=== PATIENT | female | born 1975 | race Hispanic/Latino ===

== ENCOUNTER 2016-08-06 20:10 | Emergency (ER) | payer MEDICAID ==
[2016-08-06 20:10] VITALS: BMI 26.7
[2016-08-06 20:26] VITALS: BP 130/70; PULSE 92; RESP 16; TEMP 98; O2SAT 98
--- NOTE | 2016-08-06 21:04 | ED PDOC ---
Lower Extremity Pain/Injury Time Seen by Provider: 08/06/16 20:44 Chief Complaint (Nursing): Lower Extremity Problem/Injury Chief Complaint (Provider): Right Knee Pain History Per: Patient History/Exam Limitations: no limitations Onset/Duration Of Symptoms: Days (x1) Current Symptoms Are (Timing): Still Present Severity: Mild Additional Complaint(s): Patient is a 40 year old female presenting to the ED complaining of right knee pain status post fall yesterday. Patient reports she slipped and fell yesterday. States her left left when in front of her and her right left twisted outward. She had XRs done earlier today and was told there were no fractures or dislocations. Patient has a history of torn ligaments so she presents to the ED for an MRI. PMD: Kendell Russ - Knee Description Of Injury: Fell Past Medical History Reviewed: Historical Data, Nursing Documentation, Vital Signs Vital Signs: Last Vital Signs Temp 98.0 F 08/06/16 20:24 Pulse 92 H 08/06/16 20:24 Resp 16 08/06/16 20:24 BP 130/70 08/06/16 20:24 Pulse Ox 98 08/06/16 20:24 - Medical History PMH: Anxiety, Back Problems (herniated disc, sciatica), Gastritis, GERD, Hiatal Hernia, Post Traumatic Stress Disorder, Seizures (reportedly a heart murmur) Denies: Diabetes, Hepatitis, HIV, HTN, Chronic Kidney Disease, Sexually Transmitted Disease - Surgical History Surgical History: Cholecystectomy - Family History Family History: States: Unknown Family Hx - Home Medications Home Medications: Ambulatory Orders Medication Instructions Recorded Ondansetron ODT [Zofran ODT] 4 mg PO BID #6 odt 08/10/15 Lansoprazole [Prevacid] 30 mg PO DAILY 05/20/16 Ondansetron ODT [Zofran ODT] 4 mg PO TID PRN #20 odt 05/20/16 - Allergies Allergies/Adverse Reactions: Allergies Allergy/AdvReac Type Severity Reaction Status Date / Time ciprofloxacin [From Cipro] Allergy RASH Verified 12/06/15 15:36 ciprofloxacin HCl Allergy RASH Verified 12/06/15 15:36 [From Cipro] Penicillins Allergy RASH Verified 12/06/15 15:36 Review of Systems ROS Statement: Except As Marked, All Systems Reviewed And Found Negative Constitutional: Negative for: Fever Musculoskeletal: Positive for: Other (rt knee pain) Physical Exam - Reviewed Nursing Documentation Reviewed: Yes Vital Signs Reviewed: Yes - Physical Exam Appears: Positive for: Well, Non-toxic, No Acute Distress Head Exam: Positive for: ATRAUMATIC, NORMAL INSPECTION, NORMOCEPHALIC Skin: Positive for: Normal Color (No ecchymosis, no abrasions ), Warm Eye Exam: Positive for: Normal appearance ENT: Positive for: Normal ENT Inspection Neck: Positive for: Normal, Painless ROM Cardiovascular/Chest: Positive for: Regular Rate, Rhythm Respiratory: Positive for: CNT, Normal Breath Sounds Gastrointestinal/Abdominal: Positive for: Normal Exam, Bowel Sounds, Soft Back: Positive for: Normal Inspection Extremity: Positive for: Normal ROM Neurologic/Psych: Positive for: Alert, Oriented - ECG O2 Sat by Pulse Oximetry: 98 (RA) Pulse Ox Interpretation: Normal Medical Decision Making Medical Decision Making: Time: 20:45 Impression: Rt knee pain Plan: Patient told that the ER does not provide MRIs. Scribe Attestation: Documented by Brandin King acting as a scribe for Monica Poon. Provider Attestation: All medical record entries made by the Scribe were at my direction and personally dictated by me. I have reviewed the chart and agree that the record accurately reflects my personal performance of the history, physical exam, medical decision making, and the department course for this patient. I have also personally directed, reviewed, and agree with the discharge instructions and disposition. Disposition - Clinical Impression Clinical Impression: Right knee pain - Disposition Disposition: Routine/Home Disposition Time: 21:45 Condition: STABLE Instructions: Knee Pain (ED)
== END 2016-08-06 22:13 | disposition home or self-care (01) ==
LOC: H.ER 20:10
DX: M25.561 Pain in right knee (principal); W19.XXXA Unspecified fall, initial encounter; Y92.89 Other specified places as the place of occurrence of the external cause

== ENCOUNTER 2016-10-01 17:50 | Emergency (ER) | payer MEDICAID ==
[2016-10-01 17:50] VITALS: BMI 26.7
[2016-10-01 18:09] VITALS: BP 108/68; PULSE 97; RESP 20; TEMP 98.7; O2SAT 100
--- NOTE | 2016-10-01 18:37 | ED PDOC ---
Lower Extremity Pain/Injury Time Seen by Provider: 10/01/16 18:10 Chief Complaint (Nursing): Lower Extremity Problem/Injury Chief Complaint (Provider): Lower Extremity Problem/Injury History Per: Patient History/Exam Limitations: no limitations Onset/Duration Of Symptoms: Hrs (a few hours prior to arrival) Additional Complaint(s): Pita Pryor, 40 year old female presents to the ED on 10/01/16 with a lower extremity injury. Patient states that she was walking and suddenly felt her right knee twist a few hours prior to arrival. She reports on August 05, she injured the same knee and was diagnosed with Meniscus Tear via MRI. Patient further states that she has yet to see an orthopedist. She denies any numbness or tingling. Past Medical History Reviewed: Historical Data, Nursing Documentation, Vital Signs Vital Signs: Last Vital Signs Temp 98.7 F 10/01/16 17:57 Pulse 97 H 10/01/16 17:57 Resp 20 10/01/16 17:57 BP 108/68 10/01/16 17:57 Pulse Ox 100 10/01/16 17:57 - Medical History PMH: Anxiety, Back Problems (herniated disc, sciatica), Gastritis, GERD, Hiatal Hernia, Post Traumatic Stress Disorder, Seizures (reportedly a heart murmur) Denies: Diabetes, Hepatitis, HIV, HTN, Chronic Kidney Disease, Sexually Transmitted Disease - Surgical History Surgical History: Cholecystectomy - Family History Family History: States: Unknown Family Hx - Home Medications Home Medications: Ambulatory Orders Medication Instructions Recorded Ondansetron ODT [Zofran ODT] 4 mg PO BID #6 odt 08/10/15 Lansoprazole [Prevacid] 30 mg PO DAILY 05/20/16 Ondansetron ODT [Zofran ODT] 4 mg PO TID PRN #20 odt 05/20/16 Naproxen [Naprosyn] 500 mg PO BID PRN #30 tab 10/01/16 Tramadol HCl [Ultram] 1 - 2 tab PO BID PRN #10 tablet 10/01/16 - Allergies Allergies/Adverse Reactions: Allergies Allergy/AdvReac Type Severity Reaction Status Date / Time ciprofloxacin [From Cipro] Allergy RASH Verified 12/06/15 15:36 ciprofloxacin HCl Allergy RASH Verified 12/06/15 15:36 [From Cipro] Penicillins Allergy RASH Verified 12/06/15 15:36 Review of Systems Musculoskeletal: Positive for: Leg Pain (right knee) Neurological: Negative for: Numbness (and no tingling) Physical Exam - Reviewed Nursing Documentation Reviewed: Yes Vital Signs Reviewed: Yes - Physical Exam Appears: Positive for: Non-toxic, No Acute Distress Head Exam: Positive for: ATRAUMATIC, NORMOCEPHALIC Skin: Positive for: Normal Color, Warm, Dry Extremity: Positive for: Tenderness (mild tenderness to right knee), Swelling ( minimal swelling to right knee), Other (dorsalis pedis pulses 2+). Negative for : Calf Tenderness (bilaterally ), Deformity (to right knee) Neurologic/Psych: Positive for: Alert, Oriented (x3) - ECG O2 Sat by Pulse Oximetry: 100 (RA) Pulse Ox Interpretation: Normal - Progress ED Course And Treament: Knee immobilized in immobilizer applied by plastics technician. Crutches provided. Medical Decision Making Medical Decision Makin:10 Initial Impression: Lower Extremity Injury/Problem Initial Plan: * Knee 3 Views RT [RAD] Stat * Reevaluation Scribe Attestation: Documented by Laura Davis, acting as a scribe for Jacob Gonsales PA-C. Provider Scribe Attestation: All medical record entries made by the Scribe were at my direction and personally dictated by me. I have reviewed the chart and agree that the record accurately reflects my personal performance of the history, physical exam, medical decision making, and the department course for this patient. I have also personally directed, reviewed, and agree with the discharge instructions and disposition. Disposition - Clinical Impression Clinical Impression: Knee injury - Patient ED Disposition Is Patient to be Admitted: No - Disposition Referrals: [facility] [Outside] Disposition: Routine/Home Disposition Time: 19:07 Condition: STABLE Prescriptions: Naproxen [Naprosyn] 500 mg PO BID PRN #30 tab PRN Reason: Pain Tramadol HCl [Ultram] 1 - 2 tab PO BID PRN #10 tablet PRN Reason: Other Instructions: Knee Sprain (ED), Knee Immobilizer (ED), Crutch Instructions (ED) Print Language: KINYARWANDA
--- NOTE | 2016-10-02 14:36 | RAD ---
PROCEDURE: Right Knee Radiographs. HISTORY: trauma COMPARISON: None. FINDINGS: BONES: Normal. No fracture. JOINTS: Normal. No osteoarthritis. JOINT EFFUSION: None. OTHER FINDINGS: None. IMPRESSION: No evidence of acute fracture or dislocation
== END 2016-10-01 20:17 | disposition home or self-care (01) ==
LOC: H.ER 17:50
DX: S89.91XA Unspecified injury of right lower leg, initial encounter (principal); X50.9XXA Other and unspecified overexertion or strenuous movements or postures, initial encounter; Y92.410 Unspecified street and highway as the place of occurrence of the external cause; F41.9 Anxiety disorder, unspecified; F43.10 Post-traumatic stress disorder, unspecified; K21.9 Gastro-esophageal reflux disease without esophagitis; Z88.0 Allergy status to penicillin

== ENCOUNTER 2016-10-10 14:09 | Emergency (ER) | payer MEDICAID ==
[2016-10-10 14:09] VITALS: BMI 26.7
[2016-10-10 15:04] VITALS: BP 97/60; PULSE 73; RESP 16; TEMP 98; O2SAT 98
[2016-10-10] MEDS ORDERED: Oxycodone/Acetaminophen 5/325 mg Tab ONE (15:11)
[2016-10-10] MEDS ORDERED: Oxycodone/Acetaminophen 5/325 mg Tab PO STA (15:14)
--- NOTE | 2016-10-10 15:54 | ED PDOC ---
Lower Extremity Pain/Injury Time Seen by Provider: 10/10/16 15:05 Chief Complaint (Nursing): Lower Extremity Problem/Injury Chief Complaint (Provider): Right Knee Pain History Per: Patient History/Exam Limitations: no limitations Onset/Duration Of Symptoms: Days (x2 months) Current Symptoms Are (Timing): Still Present Additional Complaint(s): Pita Pryor is a 40 year old female that presents to the ED with a chief complaint of right leg pain that she has been experiencing for the past two months. Patient states that two months ago, she was diagnosed with several tears in the ligaments of her right knee but has been unable to follow up with an orthopedist due to her insurance. She reports that earlier this month, she re -injured her right knee, which has resulted in the development of further pain throughout her entire right leg. She has been keeping her leg immobilized with a knee immobilizer that she was given. Patient denies any SOB, chest pain, or history of DVT or PE. Of Note: Patient has a scheduled appointment with an orthopedist, but has to pay out of pocket. She is requesting information for a different orthopedist. Past Medical History Reviewed: Historical Data, Nursing Documentation, Vital Signs Vital Signs: Last Vital Signs Temp 98.0 F 10/10/16 15:01 Pulse 73 10/10/16 15:01 Resp 16 10/10/16 15:01 BP 97/60 L 10/10/16 15:01 Pulse Ox 98 10/10/16 15:01 - Medical History PMH: Anxiety, Back Problems (herniated disc, sciatica), Gastritis, GERD, Hiatal Hernia, Post Traumatic Stress Disorder, Seizures (reportedly a heart murmur) Denies: Diabetes, Deep Vein Thrombosis, Hepatitis, HIV, HTN, Pulmonary Embolism, Chronic Kidney Disease, Sexually Transmitted Disease - Surgical History Surgical History: Cholecystectomy - Family History Family History: States: Unknown Family Hx - Home Medications Home Medications: Ambulatory Orders Medication Instructions Recorded Ondansetron ODT [Zofran ODT] 4 mg PO BID #6 odt 08/10/15 Lansoprazole [Prevacid] 30 mg PO DAILY 05/20/16 Ondansetron ODT [Zofran ODT] 4 mg PO TID PRN #20 odt 05/20/16 Naproxen [Naprosyn] 500 mg PO BID PRN #30 tab 10/01/16 Tramadol HCl [Ultram] 1 - 2 tab PO BID PRN #10 tablet 10/01/16 Acetaminophen with Codeine 1 each PO Q6 PRN #10 tablet 10/10/16 [Tylenol with Codeine #3 Tablet] - Allergies Allergies/Adverse Reactions: Allergies Allergy/AdvReac Type Severity Reaction Status Date / Time ciprofloxacin [From Cipro] Allergy RASH Verified 12/06/15 15:36 ciprofloxacin HCl Allergy RASH Verified 12/06/15 15:36 [From Cipro] Penicillins Allergy RASH Verified 12/06/15 15:36 Review of Systems Cardiovascular: Negative for: Chest Pain Respiratory: Negative for: Shortness of Breath Musculoskeletal: Positive for: Leg Pain (right leg pain) Physical Exam - Reviewed Nursing Documentation Reviewed: Yes Vital Signs Reviewed: Yes - Physical Exam Appears: Positive for: Non-toxic, No Acute Distress Head Exam: Positive for: ATRAUMATIC, NORMOCEPHALIC Skin: Positive for: Normal Color, Warm Eye Exam: Positive for: Normal appearance Pulses-Dorsalis Pedis (L): 2+ Pulses-Dorsalis Pedis (R): 2+ Extremity: Positive for: Tenderness (minimal tenderness right knee), Swelling ( minimal swelling right knee). Negative for: Calf Tenderness, Deformity, Other ( no palpable cord, negative Riley's sign) Neurologic/Psych: Positive for: Alert, Oriented - ECG O2 Sat by Pulse Oximetry: 98 (RA) Pulse Ox Interpretation: Normal - Progress ED Course And Treament: Duplex RLE: negative for DVT. Medical Decision Making Medical Decision Making: Impression: Right Leg Injury Plan: * Zofran 4 mg PO * Oxycodone 1 tab PO * US Right Lower Extremity Vein * Reevaluation Scribe Attestation: Documented by Pam Shah, acting as a scribe for Jacob Gonsales PA-C. Provider Scribe Attestation: All medical record entries made by the Scribe were at my direction and personally dictated by me. I have reviewed the chart and agree that the record accurately reflects my personal performance of the history, physical exam, medical decision making, and the department course for this patient. I have also personally directed, reviewed, and agree with the discharge instructions and disposition. Disposition - Clinical Impression Clinical Impression: Knee injury - Patient ED Disposition Is Patient to be Admitted: No - Disposition Referrals: Kendell Russ PA-C [Primary Care Provider] - Paul Nagy III, MD [Staff Provider] - [facility] [Outside] Disposition: Routine/Home Disposition Time: 16:29 Condition: STABLE Prescriptions: Acetaminophen with Codeine [Tylenol with Codeine #3 Tablet] 1 each PO Q6 PRN # 10 tablet PRN Reason: pain Instructions: Knee Immobilizer (ED), RICE Therapy (ED)
--- NOTE | 2016-10-10 16:03 | US ---
PROCEDURE: Right lower extremity venous duplex Doppler. HISTORY: pain COMPARISON: None available. TECHNIQUE: Common femoral, superficial femoral, popliteal and posterior tibial veins were evaluated. Flow was assessed with color Doppler, compressibility, assessment of phasic flow and augmentation response. FINDINGS: COMMON FEMORAL VEIN: Unremarkable. SUPERFICIAL FEMORAL VEIN: Unremarkable. POPLITEAL VEIN: Unremarkable. POSTERIOR TIBIAL VEIN: Unremarkable. OTHER FINDINGS: None. IMPRESSION: No evidence of deep venous thrombosis in the right lower extremity.
== END 2016-10-10 17:03 | disposition home or self-care (01) ==
LOC: H.ER 14:09
DX: M25.561 Pain in right knee (principal); F41.9 Anxiety disorder, unspecified; F43.10 Post-traumatic stress disorder, unspecified; K21.9 Gastro-esophageal reflux disease without esophagitis; Z88.0 Allergy status to penicillin

== ENCOUNTER 2016-10-30 02:55 | Emergency (ER) | payer MEDICAID ==
[2016-10-30 02:56] VITALS: BMI 26.7
[2016-10-30] MEDS ORDERED: Sodium Chloride 0.9% 1,000 ML IV STA ×2 (03:10→06:03)
[2016-10-30 03:56] LABS: CHLORIDE 100 mmol/L (98-107)
[2016-10-30 03:57] LABS: POTASSIUM 3.9 MMOL/L (3.6-5.0); SODIUM 135 mmol/l (132-148)
[2016-10-30 03:59] LABS: BASO # 0.1 K/uL (0.0-0.2); BASO % 0.6 % (0.0-2.0); EOS % 0.2 % (0.0-4.0); GFR AFRICAN-AMERICAN > 60; HEMATOCRIT 42.3 % (34.0-47.0); LYMPH # 1.7 K/uL (1.0-4.3); LYMPH % 9.7 % (20.0-40.0); MEAN CELL VOLUME 93.8 fl (81.0-99.0); MEAN CORPUSCULAR HEMOGLOBIN 32.1 pg (27.0-31.0); MEAN CORPUSCULAR HGB CONC 34.2 g/dL (33.0-37.0); MEAN PLATELET VOLUME 7.7 fl (7.2-11.7); MONO # 0.6 K/uL (0.0-0.8); MONO % 3.4 % (0.0-10.0); NEUT % 86.1 % (50.0-75.0); NRBC % 0.1 % (0.0-0.0); PLATELET COUNT 278 K/uL (130-400); WHITE BLOOD COUNT 17.4 K/uL (4.8-10.8)
[2016-10-30 04:00] LABS: ALB/GLOB RATIO 1.5 (1.0-2.1); ALKALINE PHOSPHATASE 103 U/L (38-126); ALT/SGPT 49 U/L (9-52); AST/SGOT 43 U/L (14-36); BILIRUBIN,TOTAL 0.6 mg/dl (0.2-1.3); BLOOD UREA NITROGEN 17 mg/dl (7-17); CALCIUM 9.6 mg/dL (8.4-10.2); CARBON DIOXIDE 22 mmol/L (22-30); GLUCOSE,RANDOM 112 mg/dL (65-105); TOTAL PROTEIN 7.4 G/DL (6.3-8.2)
--- NOTE | 2016-10-30 04:22 | ED PDOC ---
HPI: Abdomen Time Seen by Provider: 10/30/16 03:00 Chief Complaint (Nursing): Abdominal Pain Chief Complaint (Provider): Abdominal Pain History Per: Patient Outside of [place] travel?: No Current Symptoms Are (Timing): Still Present Context: Other (Alcohol) Location Of Pain/Discomfort: Epigastric Quality Of Discomfort: Burning Associated Symptoms: Nausea, Vomiting, Other (Lightheaded) Additional Complaint(s): 40 year old female presents to ED with complaints of burning epigastric pain secondary to drinking tequila all day with no food. (+) nausea, vomiting, and lightheadedness. HPI is limited due to patient's intoxicated state. PCP:[facility] Past Medical History Reviewed: Historical Data, Nursing Documentation, Vital Signs Vital Signs: Last Vital Signs Temp 98.7 F 10/30/16 03:05 Pulse 76 10/30/16 03:05 Resp 17 10/30/16 03:05 BP 139/87 10/30/16 03:05 Pulse Ox 100 10/30/16 06:58 - Medical History PMH: Anxiety, Back Problems (herniated disc, sciatica), Gastritis, GERD, Hiatal Hernia, Post Traumatic Stress Disorder, Seizures (reportedly a heart murmur) Denies: Diabetes, Deep Vein Thrombosis, Hepatitis, HIV, HTN, Pulmonary Embolism, Chronic Kidney Disease, Sexually Transmitted Disease - Surgical History Surgical History: Cholecystectomy - Family History Family History: States: Unknown Family Hx - Social History Alcohol: > 2 Drinks/Day - Home Medications Home Medications: Ambulatory Orders Medication Instructions Recorded Ondansetron ODT [Zofran ODT] 4 mg PO BID #6 odt 08/10/15 Lansoprazole [Prevacid] 30 mg PO DAILY 05/20/16 Ondansetron ODT [Zofran ODT] 4 mg PO TID PRN #20 odt 05/20/16 Naproxen [Naprosyn] 500 mg PO BID PRN #30 tab 10/01/16 Tramadol HCl [Ultram] 1 - 2 tab PO BID PRN #10 tablet 10/01/16 Acetaminophen with Codeine 1 each PO Q6 PRN #10 tablet 10/10/16 [Tylenol with Codeine #3 Tablet] - Allergies Allergies/Adverse Reactions: Allergies Allergy/AdvReac Type Severity Reaction Status Date / Time ciprofloxacin [From Cipro] Allergy RASH Verified 12/06/15 15:36 ciprofloxacin HCl Allergy RASH Verified 12/06/15 15:36 [From Cipro] Penicillins Allergy RASH Verified 12/06/15 15:36 Review of Systems ROS Statement: Except As Marked, All Systems Reviewed And Found Negative Gastrointestinal: Positive for: Nausea, Vomiting, Abdominal Pain (burning epigastric pain) Neurological: Positive for: Dizziness (Lightheadedness) Physical Exam - Reviewed Nursing Documentation Reviewed: Yes Vital Signs Reviewed: Yes - Physical Exam Appears: Positive for: Uncomfortable (Patient is actively retching) Skin: Positive for: Normal Color Cardiovascular/Chest: Positive for: Regular Rate, Rhythm Respiratory: Negative for: Respiratory Distress Gastrointestinal/Abdominal: Positive for: Soft, Tenderness (epigastric tenderness) Extremity: Negative for: Deformity Neurologic/Psych: Negative for: Oriented, Motor/Sensory Deficits - Laboratory Results Result Diagrams: 10/30/16 03:30 10/30/16 03:30 - ECG O2 Sat by Pulse Oximetry: 100 (RA) Pulse Ox Interpretation: Normal Medical Decision Making Medical Decision Makin Initial impression: alcohol-induced gastritis Initial plan: * Labs * NS IV * Protonix Inj 40mg IVP * Zofran Inj 4mg IVP * Re-eval [id number] Upon re-evaluation, patient's abdominal pain has significantly improved; however the patient is still actively vomiting. Scribe Attestation: Documented by Letty Gonsalves acting as a scribe for Haroon Sandoval MD. Scribe Attestation: All medical record entries made by the Scribe were at my direction and personally dictated by me. I have reviewed the chart and agree that the record accurately reflects my personal performance of the history, physical exam, medical decision making, and the department course for this patient. I have also personally directed, reviewed, and agree with the discharge instructions and disposition. Disposition - Clinical Impression Clinical Impression: Abdominal pain - Disposition Referrals: Harry William MD [Primary Care Provider] - Disposition: Transfer of Care Disposition Time: 07:00 Condition: STABLE Patient Signed Over To: Etelvina Mandel Handoff Comments: Pending US and lipase
[2016-10-30] MEDS ORDERED: Promethazine 25 MG in Sodium Chloride 0.9% 50 ML IVPB ONE (06:56)
[2016-10-30 07:03] LABS: NEUTROPHIL 85 % (42-75); TOTAL CELLS COUNTED 100
[2016-10-30 07:04] LABS: GIANT PLATELETS PRESENT
[2016-10-30 07:23] LABS: RBC URINE 11 /hpf (0-3); URINE BACTERIA RARE (<OCC); URINE BILIRUBIN NEGATIVE (NEGATIVE); URINE BLOOD SMALL (NEGATIVE); URINE COLOR YELLOW (YELLOW); URINE GLUCOSE (UA) NEG (Normal); URINE KETONE 80 mg/dL (NEGATIVE); URINE LEUKOCYTE ESTERASE NEG Leu/uL (Negative); URINE PROTEIN 30 mg/dL (NEGATIVE); URINE UROBILINOGEN 0.2-1.0 mg/dL (0.2-1.0); WBC URINE 6 /hpf (0-5)
--- NOTE | 2016-10-30 08:19 | ED PDOC ---
- Laboratory Results Result Diagrams: 10/30/16 03:30 10/30/16 03:30 - ECG O2 Sat by Pulse Oximetry: 100 (RA) Medical Decision Making Medical Decision Making: Patient signed out from prior MD, Dr. Sandoval as a 40 y/o F who presented with vomiting and diffuse abdominal pain the morning after excessive alcohol intake. Labs show elevated wbc. Normal lipase. Grossly normal CMP. Patient was monitored overnight and given multiple doses of anti-emetic. She was signed out to me as P[place] and ultrasound. 8:18AM UA positive for ketones but otherwise normal (negative for leukocytes and nitrates). Patient asking to eat. P:u/s read. 8:44AM U/s shows "Status post cholecystectomy. Echogenic 2.4 cm mass in right lobe of liver, nonspecific. Consider further evaluation with multiphasic contrast enhanced CT. Otherwise unremarkable." On reevaluation patient is reporting worsening of known anxiety and is requesting outpatient medication which was ordered. 9:51AM Patient is drinking tea with sugar and tolerating medication. She has soft NT/ ND abdomen with normal vitals and is well appearing. Her wbc is elevated but likely reactionary. She is aware to increase fluids and follow-up for mass in liver and hematuria. She reports that she wants to go home. Disposition - Clinical Impression Clinical Impression: Abdominal pain, Hematuria, Liver lesion - POA Present On Arrival: None - Disposition Referrals: Harry Willima MD [Primary Care Provider] - Disposition: Routine/Home Disposition Time: 09:43 Condition: STABLE Additional Instructions: Follow up with PMD for hematuria. Follow-up with PMD for lesion seen in liver for outpatient MRI/CT. Return to ED if condition worsens. Increase fluids. Instructions: Gastritis (ED), Acute Nausea and Vomiting (ED)
--- NOTE | 2016-10-30 08:29 | US ---
HISTORY: epig, RUQ pain after ETOH COMPARISON: None. TECHNIQUE: Sonographic evaluation of the right upper quadrant of the abdomen. FINDINGS: LIVER: Measures 15.5 cm in length. Normal echogenicity of the liver parenchyma. Echogenic mass in right lobe of liver, 1.8 x 1.9 x 2.4 cm. Nonspecific. No other hepatic mass. No biliary ductal dilatation. Smooth contour. GALLBLADDER: Status post cholecystectomy. COMMON BILE DUCT: Measures 6 mm. No stones. No dilatation. PANCREAS: Unremarkable as visualized. No mass. No ductal dilatation. RIGHT KIDNEY: Measures 11.0 cm in length. Normal echogenicity. No calculus, mass, or hydronephrosis. AORTA: No aneurysmal dilatation. IVC: Unremarkable. OTHER FINDINGS: None . IMPRESSION: Status post cholecystectomy. Echogenic 2.4 cm mass in right lobe of liver, nonspecific. Consider further evaluation with multiphasic contrast enhanced CT. Otherwise unremarkable.
[2016-10-30 09:01] VITALS: RESP 18; TEMP 99.4
[2016-10-30 10:04] VITALS: BP 130/70; PULSE 80; O2SAT 99
== END 2016-10-30 10:04 | disposition home or self-care (01) ==
LOC: H.ER 02:55
DX: K76.89 Other specified diseases of liver (principal); R11.2 Nausea with vomiting, unspecified; R31.9 Hematuria, unspecified; R42 Dizziness and giddiness; F10.129 Alcohol abuse with intoxication, unspecified; F41.9 Anxiety disorder, unspecified; F43.10 Post-traumatic stress disorder, unspecified; K21.9 Gastro-esophageal reflux disease without esophagitis; Z88.0 Allergy status to penicillin; D72.829 Elevated white blood cell count, unspecified; Z90.49 Acquired absence of other specified parts of digestive tract

== ENCOUNTER 2017-08-24 11:34 | Emergency (ER) | payer MEDICAID ==
[2017-08-24] MEDS ORDERED: Sodium Chloride 0.9% 1,000 ML IV SCH (12:00)
[2017-08-24 12:04] VITALS: BMI 24.9
--- NOTE | 2017-08-24 12:15 | ED PDOC ---
HPI:STROKE - Time Time: 11:58 - Historian Historian: Patient - Chief Complaint Chief Complaint: Numbness - Onset Date: 08/24/17 Time: 10:00 - Timing Timing: Currently Symptomatic - Context Context: Walking - Location Locate left: Upper extremity - Severity of pain Maximum severity:: Mild Severity Current: Mild - Exacerbated by Exacerbated by:: Nothing - Relieved by Relieved by:: Nothing - TPA Positive for Contraindication: Yes Reason tPA is not being Administered: NIHSS <4, sensory only, possible anxiety - Notes: Notes:: 41yo female c/o concern over having an anxiety attack- walking and developed anxiety, chest tightness which progressed to left arm paresthesias. Symptoms have occurred before and she was told its anxiety. Denies syncope, weakness, change in speech or vision, or trouble walking. Against Medical Advice - AMA Patient Left Against Medical Advice: The patient declines admission to the hospital and wishes to leave the Emergency Department. This action is against my medical advice. This decision was made with informed refusal. The patient was told that admission to the hospital is necessary. Explanation of the reasons why were discussed. The risks of leaving were explained to the patient and include, but are not limited to, worsening of known or currently unknown conditions, permanent disability and from undiagnosed or untreated conditions. The patient has the capacity to make this informed decision and understands my explanation of the current medical problem and risks of leaving. The patient voluntarily accepts these risks and signed an AMA form documenting our conversation. The patient was given the opportunity to ask questions and reconsider. The patient was encouraged to return to the Emergency Department at any time for further care. NIHSS Stroke Scale - Date/Time Evaluation Performed Date Performed: 08/24/17 Time Performed: 12:10 When Was NIHSS Performed: Baseline - How Severe is the Stroke Level of Consciousness: 0=Alert LOC to Questions: 0=Both comments correct LOC to commands: 0=Obeys both correctly Best Gaze: 0=Normal Visual: 0=No visual loss Facial: 0=Normal Motor Arm - Left: 0=No drift Motor Arm - Right: 0=No drift Motor Leg - Left: 0=No drift Motor Leg - Right: 0=No drift Limb Ataxia: 0=Absent Sensory: 0=Normal Best Language: 0=No aphasia Dysarthia: 0=Normal articulation Extinction & Inattention (Neglect): 0=Normal, no object Score: 0 rTPA Inclusion/Exclusion - Refusal of Treatment Patient Refused Treatment: No - Inclusion Criteria for Altepase Patient is 18 years or Older: Yes The Clinical Diagnosis of Ischemic Stroke That is Causing a Potentially Disabling Neurological Deficit: No Time of Onset is Well Established to be Less Than 270 Minute Before Treatment Would Begin: Yes Risk/Benefit Discussed With Patient/Family Member Present: No - Warning to TPA With Conditions Following Conditions Weighed Against Anticipated Benefit: Yes Condition: Stroke Serevity Too Mild Past Medical History Reviewed: Historical Data, Nursing Documentation, Vital Signs - Medical History PMH: Anxiety, Asthma, Back Problems (herniated disc, sciatica), Gastritis, GERD , Hiatal Hernia, Post Traumatic Stress Disorder, Seizures (reportedly a heart murmur) Denies: Diabetes, Deep Vein Thrombosis, Hepatitis, HIV, HTN, Pulmonary Embolism, Chronic Kidney Disease, Sexually Transmitted Disease - Surgical History Surgical History: Cholecystectomy - Family History Family History: States: Unknown Family Hx - Social History Current smoker - smoking cessation education provided: Yes - Home Medications Home Medications: Ambulatory Orders Medication Instructions Recorded Acetaminophen with Codeine 1 tab PO Q8 PRN 08/24/17 [Tylenol with Codeine #3 Tablet] Albuterol 0.083% [Albuterol 0.083% 3 ml IH Q6 PRN 08/24/17 Inhal Beatriz (2.5 mg/3 ml) UD] Albuterol HFA [Ventolin HFA 90 1 - 2 puff IH Q4 PRN #1 inhaler 08/24/17 mcg/actuation (8 g)] Albuterol HFA [Ventolin HFA 90 2 puff IH Q4 PRN 08/24/17 mcg/actuation (8 g)] Cetirizine HCl [Cetirizine HCl] 20 mg PO HS 08/24/17 Clindamycin [Cleocin] 300 mg PO Q8 08/24/17 Famotidine [Pepcid] 40 mg PO HS PRN 08/24/17 Gabapentin [Neurontin] 400 mg PO Q8 08/24/17 Lansoprazole [Prevacid] 30 mg PO DAILY 08/24/17 Ondansetron [Zofran Tab] 4 mg PO Q8 PRN 08/24/17 Prednisone 50 mg PO DAILY #4 tab 08/24/17 traZODone [Desyrel] 100 mg PO HS 08/24/17 - Allergies Allergies/Adverse Reactions: Allergies Allergy/AdvReac Type Severity Reaction Status Date / Time ciprofloxacin [From Cipro] Allergy RASH Verified 12/06/15 15:36 ciprofloxacin HCl Allergy RASH Verified 12/06/15 15:36 [From Cipro] Penicillins Allergy RASH Verified 12/06/15 15:36 Review of Systems ROS Statement: Except As Marked, All Systems Reviewed And Found Negative Constitutional: Negative for: Fever, Chills ENT: Negative for: Throat Pain Cardiovascular: Positive for: Chest Pain, Palpitations Respiratory: Negative for: Cough, Shortness of Breath Gastrointestinal: Negative for: Nausea, Abdominal Pain Genitourinary Female: Negative for: Dysuria Musculoskeletal: Negative for: Neck Pain Skin: Negative for: Rash, Lesions, Jaundice Neurological: Positive for: Numbness. Negative for: Weakness, Incoordination Psych: Positive for: Anxiety. Negative for: Depression, Suicidal ideation Physical Exam - Reviewed Nursing Documentation Reviewed: Yes Vital Signs Reviewed: Yes - Physical Exam Appears: Positive for: Well, Non-toxic, No Acute Distress Head Exam: Positive for: ATRAUMATIC, NORMAL INSPECTION, NORMOCEPHALIC Skin: Positive for: Normal Color, Warm, DRY Eye Exam: Positive for: EOMI, Normal appearance, PERRL ENT: Positive for: Normal ENT Inspection Neck: Positive for: Normal, Painless ROM Cardiovascular/Chest: Positive for: Regular Rate, Rhythm Respiratory: Positive for: CNT, Normal Breath Sounds Gastrointestinal/Abdominal: Positive for: Normal Exam, Soft Back: Positive for: Normal Inspection Extremity: Positive for: Normal ROM Neurologic/Psych: Positive for: Alert, Oriented, Mood/Affect (anxious), Other ( strength 5/5 all ext no objective sensory loss). Negative for: powder mixer II-XII, Motor/Sensory Deficits, Facial Droop - Laboratory Results Result Diagrams: 08/24/17 10:50 08/24/17 10:50 Medical Decision Making Medical Decision Making: code stroke activated by RN CT brain obtained and result d/w radiologist at 12:11pm CT brain neg ASA ordered Xanax ordered for anxiety 2p labs reviewed and unremarkable MRI was recommended to patient w obs for possible CVA given numbness L arm, but she wishes to leave hospital and have completed as outpt. Explained risks of delayed diagnosis of stroke and profound risks associated with leaving AMA, including disability, inability to speak/walk or use extremities, or even . Smoking cessation discussed. Patient states has to leave for her daughter, discussed options to have others care for daughter but she wants to leave anyway. Disposition - Clinical Impression Clinical Impression: Right arm numbness, Asthma, Left against medical advice - Patient ED Disposition Is Patient to be Admitted: No Counseled Patient/Family Regarding: Studies Performed, Diagnosis, Need For Followup - Disposition Referrals: [facility] [Provider Group] [facility] [Provider Group] [facility] [Provider Group] Disposition: Against Medical Advice Disposition Time: 14:16 Condition: STABLE Additional Instructions: please return to any ER for completion of workup. You left hospital against medical advice and risks include a possible early stroke with resultant disability, weakness/paralysis, inability to talk or see, walk or use your extremities. Recommend smoking cessation. Prescriptions: Albuterol HFA [Ventolin HFA 90 mcg/actuation (8 g)] 1 - 2 puff IH Q4 PRN #1 inhaler PRN Reason: Shortness Of Breath Prednisone 50 mg PO DAILY #4 tab Instructions: Asthma in Adults, Paresthesias (DC), Hand Numbness, Leaving Against Medical Advice Forms: [employer] (Hebrew)
--- NOTE | 2017-08-24 12:17 | CT ---
PROCEDURE: CT HEAD WITHOUT CONTRAST. HISTORY: Left arm numbness COMPARISON: None available. TECHNIQUE: Axial computed tomography images were obtained through the head/brain without intravenous contrast. Radiation dose: Total exam DLP = 804.66 mGy-cm. This CT exam was performed using one or more of the following dose reduction techniques: Automated exposure control, adjustment of the mA and/or kV according to patient size, and/or use of iterative reconstruction technique. FINDINGS: HEMORRHAGE: No intracranial hemorrhage. BRAIN: No mass effect or edema. No atrophy or chronic microvascular ischemic changes. VENTRICLES: Unremarkable. No hydrocephalus. CALVARIUM: Unremarkable. PARANASAL SINUSES: Minimal mucosal thickening seen within the ethmoid air complex. . MASTOID AIR CELLS: Unremarkable as visualized. No inflammatory changes. OTHER FINDINGS: None. IMPRESSION: No acute intracranial hemorrhage. Findings discussed with Dr. Davis at approximately 12:11 p.m. with written down and read back verification.
[2017-08-24 12:23] VITALS: BP 126/72; PULSE 87; RESP 17; TEMP 98.6; O2SAT 100
[2017-08-24 12:34] LABS: BASO # 0.1 K/uL (0.0-0.2); BASO % 1.1 % (0.0-2.0); EOS # 0.1 K/uL (0.0-0.7); EOS % 1.4 % (0.0-4.0); HEMOGLOBIN 14.9 g/dL (12.0-16.0); LYMPH # 1.2 K/uL (1.0-4.3); LYMPH % 12.7 % (20.0-40.0); MEAN CELL VOLUME 91.9 fl (81.0-99.0); MEAN CORPUSCULAR HEMOGLOBIN 31.5 pg (27.0-31.0); MEAN CORPUSCULAR HGB CONC 34.3 g/dL (33.0-37.0); MEAN PLATELET VOLUME 7.7 fl (7.2-11.7); MONO # 0.7 K/uL (0.0-0.8); MONO % 6.9 % (0.0-10.0); NEUT # 7.4 K/uL (1.8-7.0); NEUT % 77.9 % (50.0-75.0); NRBC % 0.1 % (0.0-0.0); RBC 4.73 Mil/uL (3.80-5.20); RED CELL DISTRIBUTION WIDTH 13.8 % (11.5-14.5); WHITE BLOOD COUNT 9.5 K/uL (4.8-10.8)
[2017-08-24 12:40] LABS: PROTHROMBIN TIME 11.5 Seconds (9.8-13.1)
[2017-08-24 12:53] LABS: CALCIUM 9.3 mg/dL (8.4-10.2); GFR AFRICAN-AMERICAN > 60; GFR NON-AFRICAN AMERICAN > 60; HDL CHOLESTEROL 51 MG/DL (30-70)
[2017-08-24 13:00] LABS: ALB/GLOB RATIO 1.2 (1.0-2.1); ALBUMIN 4.4 g/dL (3.5-5.0); ALT/SGPT 15 U/L (9-52); AST/SGOT 47 U/L (14-36); BLOOD UREA NITROGEN 12 mg/dl (7-17)
[2017-08-24 13:04] LABS: LDL CHOLESTEROL 127 mg/dL (0-129)
--- NOTE | 2017-08-24 13:05 | RAD ---
HISTORY: Code Stroke COMPARISON: Chest radiograph 05/20/2016. FINDINGS: LUNGS: No active pulmonary disease. PLEURA: No significant pleural effusion identified, no pneumothorax apparent. CARDIOVASCULAR: Normal. OSSEOUS STRUCTURES: No significant abnormalities. VISUALIZED UPPER ABDOMEN: Normal. OTHER FINDINGS: None. IMPRESSION: No interval acute cardiopulmonary disease appreciated.
[2017-08-24 13:16] LABS: BARBITURATES, UR NEGATIVE (NEGATIVE); BENZODIAZEPINES, UR POSITIVE (NEGATIVE); OPIATES, UR NEGATIVE (NEGATIVE); PHENCYCLIDINE, UR NEGATIVE (NEGATIVE)
[2017-08-24] MEDS ORDERED: Albuterol-Ipratrop 3 mg / 0.5 (3 ml) UD INH STA (14:11)
--- NOTE | 2017-08-25 11:47 | CARD ---
APPROVED REPORT EKG Measurement Heart [id number] <Conclusion> Sinus tachycardia Possible Left atrial enlargement Septal infarct, age undetermined Abnormal ECG
== END 2017-08-24 14:43 | disposition left against medical advice (07) ==
LOC: H.ER 11:34
DX: R20.2 Paresthesia of skin (principal); J45.909 Unspecified asthma, uncomplicated; F43.10 Post-traumatic stress disorder, unspecified; K21.9 Gastro-esophageal reflux disease without esophagitis; Z88.0 Allergy status to penicillin
CPT/HCPCS: 70450; 71045; 80053; 80061; 80324; 80345; 80346; 80349; 80353; 80358; 80361; 81025; 82948; 83036; 83992; 84484; 85025; 85610; 85730; 86850; 86900; 93005; 99285; J7040

== ENCOUNTER 2017-09-06 17:33 | Emergency (ER) | payer MEDICAID ==
[2017-09-06 17:33] VITALS: BMI 24.9
--- NOTE | 2017-09-06 17:58 | ED PDOC ---
HPI:STROKE - Time Time: 17:54 - Historian Historian: Patient - Chief Complaint Chief Complaint: Weakness, Numbness, Vision loss - Onset Date: 08/26/17 Time: 17:00 - Timing Timing: Currently Symptomatic - TPA Positive for Contraindication: Yes Reason tPA is not being Administered: out of window for thrombolytics - Notes: Notes:: Pt. with 1.5 weeks of left face, arm, leg weakness, numbness, tingles. Was seen in the Ed for it approx 1.5 weeks ago and then pt. AMA as there was a wait for a MRI. Pt. saw her pcp and has an appointment for a MRI tomorrow. Came today as symptoms still present and has no vision to the left half of her left eye for 4hrs. Pt. has been having dizziness/light-headedness for 1.5 weeks. Has not seen a neurologist. No chest pain, dyspnea, neck pain, headaches, abd pain, back pain. No syncope. NIHSS Stroke Scale - Date/Time Evaluation Performed Date Performed: 09/06/17 Time Performed: 17:58 When Was NIHSS Performed: Baseline - How Severe is the Stroke Level of Consciousness: 0=Alert LOC to Questions: 0=Both comments correct LOC to commands: 0=Obeys both correctly Best Gaze: 0=Normal Visual: 1=Partial hemianopia Facial: 0=Normal Motor Arm - Left: 0=No drift Motor Arm - Right: 0=No drift Motor Leg - Left: 0=No drift Motor Leg - Right: 0=No drift Limb Ataxia: 0=Absent Sensory: 0=Normal Best Language: 0=No aphasia Dysarthia: 0=Normal articulation Extinction & Inattention (Neglect): 0=Normal, no object Score: 1 rTPA Inclusion/Exclusion - Refusal of Treatment Patient Refused Treatment: No - Inclusion Criteria for Altepase Patient is 18 years or Older: Yes The Clinical Diagnosis of Ischemic Stroke That is Causing a Potentially Disabling Neurological Deficit: No Time of Onset is Well Established to be Less Than 270 Minute Before Treatment Would Begin: No Risk/Benefit Discussed With Patient/Family Member Present: No Past Medical History Reviewed: Nursing Documentation, Vital Signs Vital Signs: Last Vital Signs Temp 98.5 F 09/06/17 17:35 Pulse 101 H 09/06/17 17:35 Resp 16 09/06/17 17:35 BP 117/69 09/06/17 17:35 Pulse Ox 100 09/06/17 17:35 - Medical History PMH: Anxiety, Asthma, Back Problems (herniated disc, sciatica), Gastritis, GERD , Hiatal Hernia, Post Traumatic Stress Disorder Denies: Diabetes, Deep Vein Thrombosis, Hepatitis, HIV, HTN, Pulmonary Embolism, Chronic Kidney Disease, Sexually Transmitted Disease - Surgical History Surgical History: Cholecystectomy - Family History Family History: States: Unknown Family Hx - Home Medications Home Medications: Ambulatory Orders Medication Instructions Recorded Acetaminophen with Codeine 1 tab PO Q8 PRN 08/24/17 [Tylenol with Codeine #3 Tablet] Albuterol 0.083% [Albuterol 0.083% 3 ml IH Q6 PRN 08/24/17 Inhal Beatriz (2.5 mg/3 ml) UD] Albuterol HFA [Ventolin HFA 90 1 - 2 puff IH Q4 PRN #1 inhaler 08/24/17 mcg/actuation (8 g)] Albuterol HFA [Ventolin HFA 90 2 puff IH Q4 PRN 08/24/17 mcg/actuation (8 g)] Cetirizine HCl [Cetirizine HCl] 20 mg PO HS 08/24/17 Clindamycin [Cleocin] 300 mg PO Q8 08/24/17 Famotidine [Pepcid] 40 mg PO HS PRN 08/24/17 Gabapentin [Neurontin] 400 mg PO Q8 08/24/17 Lansoprazole [Prevacid] 30 mg PO DAILY 08/24/17 Ondansetron [Zofran Tab] 4 mg PO Q8 PRN 08/24/17 Prednisone 50 mg PO DAILY #4 tab 08/24/17 traZODone [Desyrel] 100 mg PO HS 08/24/17 - Allergies Allergies/Adverse Reactions: Allergies Allergy/AdvReac Type Severity Reaction Status Date / Time ciprofloxacin [From Cipro] Allergy RASH Verified 12/06/15 15:36 ciprofloxacin HCl Allergy RASH Verified 12/06/15 15:36 [From Cipro] Penicillins Allergy RASH Verified 12/06/15 15:36 Review of Systems ROS Statement: Except As Marked, All Systems Reviewed And Found Negative Constitutional: Positive for: Weakness Eyes: Positive for: Vision Change Neurological: Positive for: Weakness, Numbness, Dizziness Physical Exam - Reviewed Nursing Documentation Reviewed: Yes Vital Signs Reviewed: Yes - Physical Exam Appears: Positive for: Non-toxic, No Acute Distress Head Exam: Positive for: ATRAUMATIC, NORMAL INSPECTION, NORMOCEPHALIC Skin: Positive for: Normal Color, Warm, DRY Eye Exam: Positive for: Normal appearance, EOMI, PERRL ENT: Positive for: Normal ENT Inspection Neck: Positive for: Normal, Painless ROM Cardiovascular/Chest: Positive for: Regular Rate, Rhythm Respiratory: Positive for: CNT, Normal Breath Sounds Gastrointestinal/Abdominal: Positive for: Normal Exam, Soft. Negative for: Tenderness Back: Positive for: Normal Inspection. Negative for: L CVA Tenderness, R CVA Tenderness Extremity: Positive for: Normal ROM, Other (4/5 strength L upper and lower; 5/5 R upper and lower; ). Negative for: Tenderness, Pedal Edema Neurologic/Psych: Positive for: Alert, pourer off II-XII, Oriented, Other (L lateral hemianopsia). Negative for: Facial Droop - Laboratory Results Result Diagrams: 09/06/17 17:57 09/06/17 17:57 Interpretation Of Abn Labs: no acute - ECG ECG: Positive for: Interpreted By Me, Viewed By Me ECG Rhythm: Positive for: Normal QRS, Normal ST Segment, Sinus Rhythm O2 Sat by Pulse Oximetry: 100 Pulse Ox Interpretation: Normal - Radiology X-Ray: Interpreted by Me, Viewed By Me X-Ray Interpretation: No Acute Disease - CT Scan/US ct Other Rad Studies (CT/US): Read By Radiologist Other Rad Interpretation: no acute - Progress ED Course And Treament: 1948: Stable. AAOx3. Dr. High saw pt. and wants pt. to be dc. Pt. has MRI scheduled tomorrow. Pt. to fu with him in 3 days. Feels is not likely a stroke. Consideration for conversion do. Disposition - Clinical Impression Clinical Impression: Acute weakness - Patient ED Disposition Is Patient to be Admitted: No Counseled Patient/Family Regarding: Studies Performed, Diagnosis, Need For Followup - Disposition Referrals: [facility] [Outside] - 09/07/17 Edgar High MD [Medical Doctor] - 09/07/17 Disposition: Routine/Home Disposition Time: 19:50 Condition: STABLE Additional Instructions: Return if not better in 3 days. Get your MRI as scheduled for tomorrow. Instructions: Weakness (ED) Forms: [employer] ([place])
[2017-09-06] MEDS ORDERED: Sodium Chloride 0.9% 1,000 ML IV SCH (18:00)
[2017-09-06] MEDS ORDERED: Sodium Chloride 0.9% 100 ML ONE (18:00)
[2017-09-06] MEDS ORDERED: Iodixanol 320 MG/ML 100 ML BOTTLE IV ONE (18:00)
[2017-09-06 18:08] LABS: BASO % 0.5 % (0.0-2.0); EOS # 0.4 K/uL (0.0-0.7); EOS % 5.7 % (0.0-4.0); HEMOGLOBIN 13.8 g/dL (12.0-16.0); LYMPH # 2.3 K/uL (1.0-4.3); LYMPH % 30.4 % (20.0-40.0); MEAN CELL VOLUME 93.7 fl (81.0-99.0); MEAN CORPUSCULAR HEMOGLOBIN 32.4 pg (27.0-31.0); MEAN CORPUSCULAR HGB CONC 34.6 g/dL (33.0-37.0); MEAN PLATELET VOLUME 7.5 fl (7.2-11.7); MONO # 0.8 K/uL (0.0-0.8); MONO % 10.6 % (0.0-10.0); NEUT % 52.8 % (50.0-75.0); RBC 4.26 Mil/uL (3.80-5.20); RED CELL DISTRIBUTION WIDTH 13.7 % (11.5-14.5); WHITE BLOOD COUNT 7.5 K/uL (4.8-10.8)
[2017-09-06 18:30] LABS: LDL CHOLESTEROL 110 mg/dL (0-129)
[2017-09-06 18:57] LABS: ALB/GLOB RATIO 1.1 (1.0-2.1); ALBUMIN 3.4 g/dL (3.5-5.0); ALT/SGPT 35 U/L (9-52); AST/SGOT 22 U/L (14-36); BLOOD UREA NITROGEN 6 mg/dl (7-17); CALCIUM 8.7 mg/dL (8.4-10.2); GFR AFRICAN-AMERICAN > 60; GFR NON-AFRICAN AMERICAN > 60; HDL CHOLESTEROL 39 MG/DL (30-70)
--- NOTE | 2017-09-06 19:00 | CP.PCM.CON ---
History of Present Illness - History of Present Illness History of Present Illness: Ms. Pryor is a 41-year-old woman with a past medical history of anxiety, depression, PTSD, who smokes marijuana regularly, and states that last week she had a stroke that resulted in left side weakness. About 4 hour prior to arrival , she complained of some loss of vision on the left side. She presented to the ED where a CT scan of the head was done and was completely normal. On my exam, she did not have any significant left side deficits and her vision exam was inconsistent. She said that she did now want to say overnight for evaluation and told me she had an appointment to obtain an MRI of the brain tomorrow at 11: 45 AM. NIHSS was 0. She was not a candidate for IV tPA due to being outside the 4.5 hour time window and having minimal symptoms. Review of Systems - Review of Systems All systems: reviewed and no additional remarkable complaints except Past Patient History - Infectious Disease Hx of Infectious Diseases: None - Past Medical History & Family History Past Medical History?: Yes - Past Social History Smoking Status: Never Smoked - CARDIAC Hx Hypertension: No - PULMONARY Hx Asthma: Yes Hx Pulmonary Embolism: No - NEUROLOGICAL Hx Seizures: Yes (reportedly a heart murmur) - HEENT Hx HEENT Problems: No - RENAL Hx Chronic Kidney Disease: No - ENDOCRINE/METABOLIC Hx Endocrine Disorders: No - HEMATOLOGICAL/ONCOLOGICAL Hx Human Immunodeficiency Virus (HIV): No - INTEGUMENTARY Hx Dermatological Problems: No - MUSCULOSKELETAL/RHEUMATOLOGICAL Hx Musculoskeletal Disorders: Yes - GASTROINTESTINAL Hx Gastritis: Yes - GENITOURINARY/GYNECOLOGICAL Hx Sexually Transmitted Disorders: No - PSYCHIATRIC Hx Anxiety: Yes Hx Post Traumatic Stress Disorder: Yes - SURGICAL HISTORY Hx Cholecystectomy: Yes - ANESTHESIA Hx Anesthesia: Yes Meds Allergies/Adverse Reactions: Allergies Allergy/AdvReac Type Severity Reaction Status Date / Time ciprofloxacin [From Cipro] Allergy RASH Verified 12/06/15 15:36 ciprofloxacin HCl Allergy RASH Verified 12/06/15 15:36 [From Cipro] Penicillins Allergy RASH Verified 12/06/15 15:36 - Medications Medications: Current Medications Sodium Chloride (Sodium Chloride 0.9%) 1,000 mls @ 100 mls/hr IV .Q10H DONNIE Last Admin: 09/06/17 18:40 Dose: 100 mls/hr Physical Exam - Neurological Exam Neurological exam: Alert, CN II-XII Intact, Normal Gait, Oriented x3, Reflexes Normal Additional comments: NIHSS = 0 Results - Vital Signs Recent Vital Signs: Last Vital Signs Temp 98.5 F 09/06/17 17:35 Pulse 101 H 09/06/17 17:35 Resp 16 09/06/17 17:35 BP 117/69 09/06/17 17:35 Pulse Ox 100 09/06/17 18:03 - Labs Result Diagrams: 09/06/17 17:57 09/06/17 17:57 Labs: Laboratory Results - last 24 hr 09/06/17 09/06/17 09/06/17 17:47 17:57 17:57 WBC 7.5 RBC 4.26 Hgb 13.8 Hct 39.9 MCV 93.7 MCH 32.4 H MCHC 34.6 RDW 13.7 Plt Count 282 MPV 7.5 Neut % (Auto) 52.8 Lymph % (Auto) 30.4 [place] % (Auto) 10.6 H Eos % (Auto) 5.7 H Baso % (Auto) 0.5 Neut # (Auto) 4.0 Lymph # (Auto) 2.3 [place] # (Auto) 0.8 Eos # (Auto) 0.4 Baso # (Auto) 0.0 POC Glucose (mg/dL) 86 Troponin I < 0.0120 LDL Cholesterol Direct 110 Assessment & Plan (1) Vision disturbance Assessment and Plan: This appear to be minimal on exam and is inconsistent. Her symptoms are more likely related to anxiety and possibly conversion disorder. She will have an MRI done tomorrow for evaluation. The patient left AMA before and appears to be more interested in leaving now and does not want to stay for work-up. I recommend continuing aspirin 81 mg daily and follow up with outpatient neurology. Status: Acute Priority: High
[2017-09-06 19:05] LABS: INR 1.1 (0.9-1.2); PROTHROMBIN TIME 12.2 Seconds (9.8-13.1)
[2017-09-06 19:06] LABS: PARTIAL THROMBOPLASTIN TIME 34.1 Seconds (25.6-37.1)
[2017-09-06 19:31] VITALS: TEMP 97.9
[2017-09-06 20:17] VITALS: BP 116/75; PULSE 83; RESP 15; O2SAT 99
--- NOTE | 2017-09-07 07:33 | RAD ---
HISTORY: Code Stroke COMPARISON: Portable chest 08/24/2017. FINDINGS: LUNGS: No active pulmonary disease. PLEURA: No significant pleural effusion identified, no pneumothorax apparent. CARDIOVASCULAR: Normal. OSSEOUS STRUCTURES: No significant abnormalities. VISUALIZED UPPER ABDOMEN: Normal. OTHER FINDINGS: None. IMPRESSION: No interval acute cardiopulmonary disease appreciated.
--- NOTE | 2017-09-07 08:34 | CT ---
PROCEDURE: CT HEAD WITHOUT CONTRAST. HISTORY: code stroke COMPARISON: Unenhanced head CT 08/24/2017 TECHNIQUE: Axial computed tomography images were obtained through the head/brain without intravenous contrast. Radiation dose: Total exam DLP = 826.14 mGy-cm. This CT exam was performed using one or more of the following dose reduction techniques: Automated exposure control, adjustment of the mA and/or kV according to patient size, and/or use of iterative reconstruction technique. FINDINGS: HEMORRHAGE: No intracranial hemorrhage. BRAIN: Normal hernandez-white matter differentiation and density are appreciated throughout the cerebrum and cerebellum with the brainstem appearing unremarkable as well. There is no mass effect. There is no suspicious extra-axial fluid collection and the midline brain anatomy appears diffusely unremarkable. VENTRICLES: Unremarkable. No hydrocephalus. CALVARIUM: Unremarkable. PARANASAL SINUSES: Unremarkable as visualized. No significant inflammatory changes. MASTOID AIR CELLS: Unremarkable as visualized. No inflammatory changes. OTHER FINDINGS: None. IMPRESSION: Stable, unremarkable unenhanced CT of the Head. Follow-up CT or MRI are available as clinically warranted. Concordant preliminary report from [facility], 09/06/2017.
--- NOTE | 2017-09-07 08:39 | CT ---
PROCEDURE: CT Angiography of the Brain. HISTORY: code stroke COMPARISON: None available. TECHNIQUE: CT angiography of the intracranial and cervical arteries was performed. Coronal and sagittal maximum intensity projection reformatted images were generated. Contrast Dose: Visipaque 320, 90 cc Radiation dose:Total exam DLP = 629.75 mGy-cm. This CT exam was performed using one or more of the following dose reduction techniques: Automated exposure control, adjustment of the mA and/or kV according to patient size, and/or use of iterative reconstruction technique. FINDINGS: INTERNAL CEREBRAL ARTERIES: Unremarkable. The skull base, petrous, cavernous and supraclinoid segments are bilaterally widely patent. ANTERIOR CEREBRAL ARTERIES: Unremarkable. A1 and A2 segments are widely patent. Smaller distal branches unremarkable, as visualized. MIDDLE CEREBRAL ARTERIES: Unremarkable. M1 and M2 segments are widely patent. Perisylvian branches grossly symmetric. POSTERIOR CIRCULATION: Basilar Artery: Unremarkable. Distal Vertebral Arteries: Unremarkable. Posterior Cerebral Arteries: Unremarkable. Posterior Inferior Cerebellar Arteries: Unremarkable. NECK CTA: Common Carotid arteries: The bilateral common carotid appear widely patent from their origins to their bifurcations with no significant stenosis appreciated. No evidence to suggest common carotid artery dissection. Internal Carotid arteries: No significant stenosis is appreciated throughout the cervical internal carotid artery segments bilaterally and there is no evidence of dissection either. External Carotid arteries: Appear unremarkable bilaterally. Vertebral arteries: The bilateral vertebral arteries appear normal in caliber from their origins to their junction with the basilar artery. No significant stenosis or definite pattern of dissection. ANEURYSM/ VASCULAR MALFORMATIONS: None. OTHER FINDINGS: None. IMPRESSION: Unremarkable CT Angiography of the Brain and Neck. Concordant preliminary report from [facility], 09/06/2017 6:37 p.m..
--- NOTE | 2017-09-07 08:51 | CARD ---
APPROVED REPORT EKG Measurement Heart [id number] [place] [id number] <Conclusion> Normal sinus rhythm Normal ECG
== END 2017-09-06 20:17 | disposition home or self-care (01) ==
LOC: H.ER 17:33
DX: R53.1 Weakness (principal); R20.2 Paresthesia of skin; F32.9 Major depressive disorder, single episode, unspecified; F43.10 Post-traumatic stress disorder, unspecified; J45.909 Unspecified asthma, uncomplicated; K21.9 Gastro-esophageal reflux disease without esophagitis; Z86.73 Personal history of transient ischemic attack (TIA), and cerebral infarction without residual deficits; Z88.0 Allergy status to penicillin
CPT/HCPCS: 70450; 70496; 70498; 71045; 80053; 80061; 82948; 83036; 84484; 85025; 85610; 85730; 93005; 99285; J7040; Q9967

== ENCOUNTER 2017-12-17 01:47 | Emergency (ER) | payer MEDICAID ==
[2017-12-17 01:47] VITALS: BMI 24.9
[2017-12-17 02:03] VITALS: RESP 18
[2017-12-17] MEDS ORDERED: Naproxen 500 MG TAB PO ONE ×2 (02:15→02:52)
--- NOTE | 2017-12-17 02:35 | ED PDOC ---
HPI: Trauma/Fall - HPI Time Seen by Provider: 12/17/17 02:08 Chief Complaint (Nursing): Trauma Chief Complaint (Provider): right hand, right foot pain History Per: Patient History/Exam Limitations: no limitations Injury Occurred (Timing): Hours Ago: (2) Additional Complaint(s): 42 y/o female presents for evaluation of right hand and right foot pain x 2 hours. Patient states she slipped on man hole and when she fell the 5th digit of her right hand bent backwards, and the 4th and 5th digits of her right foot also bend backwards. Patient reports pain with movement. Denies numbness/ weakness of extremities, limitation of movement. Tylenol #3 taken for pain. at home. Past Medical History Reviewed: Historical Data, Nursing Documentation, Vital Signs Vital Signs: Last Vital Signs Temp 99.2 F 12/17/17 01:58 Pulse 82 12/17/17 01:58 Resp 18 12/17/17 01:58 BP 134/73 12/17/17 01:58 Pulse Ox 100 12/17/17 01:58 - Medical History PMH: Anxiety, Asthma, Back Problems (herniated disc, sciatica), Gastritis, GERD , Hiatal Hernia, Post Traumatic Stress Disorder, Seizures (reportedly a heart murmur) Denies: Diabetes, Deep Vein Thrombosis, Hepatitis, HIV, HTN, Pulmonary Embolism, Chronic Kidney Disease, Sexually Transmitted Disease - Surgical History Surgical History: Cholecystectomy - Family History Family History: States: Unknown Family Hx - Home Medications Home Medications: Ambulatory Orders Medication Instructions Recorded Acetaminophen with Codeine 1 tab PO Q8 PRN 08/24/17 [Tylenol with Codeine #3 Tablet] Albuterol 0.083% [Albuterol 0.083% 3 ml IH Q6 PRN 08/24/17 Inhal Beatriz (2.5 mg/3 ml) UD] Albuterol HFA [Ventolin HFA 90 1 - 2 puff IH Q4 PRN #1 inhaler 08/24/17 mcg/actuation (8 g)] Albuterol HFA [Ventolin HFA 90 2 puff IH Q4 PRN 08/24/17 mcg/actuation (8 g)] Cetirizine HCl [Cetirizine HCl] 20 mg PO HS 08/24/17 Clindamycin [Cleocin] 300 mg PO Q8 08/24/17 Famotidine [Pepcid] 40 mg PO HS PRN 08/24/17 Gabapentin [Neurontin] 400 mg PO Q8 08/24/17 Lansoprazole [Prevacid] 30 mg PO DAILY 08/24/17 Ondansetron [Zofran Tab] 4 mg PO Q8 PRN 08/24/17 Prednisone 50 mg PO DAILY #4 tab 08/24/17 traZODone [Desyrel] 100 mg PO HS 08/24/17 - Allergies Allergies/Adverse Reactions: Allergies Allergy/AdvReac Type Severity Reaction Status Date / Time ciprofloxacin [From Cipro] Allergy RASH Verified 12/17/17 01:58 ciprofloxacin HCl Allergy RASH Verified 12/17/17 01:58 [From Cipro] Penicillins Allergy RASH Verified 12/17/17 01:58 Review of Systems ROS Statement: Except As Marked, All Systems Reviewed And Found Negative Musculoskeletal: Positive for: Hand Pain, Foot Pain Physical Exam - Reviewed Nursing Documentation Reviewed: Yes Vital Signs Reviewed: Yes - Physical Exam Appears: Positive for: Well, Non-toxic, No Acute Distress Head Exam: Positive for: ATRAUMATIC, NORMAL INSPECTION, NORMOCEPHALIC Skin: Positive for: Normal Color Eye Exam: Positive for: Normal appearance ENT: Positive for: Normal ENT Inspection Cardiovascular/Chest: Positive for: Regular Rate, Rhythm Respiratory: Positive for: Normal Breath Sounds Pulses-Dorsalis Pedis (L): 2+ Pulses-Dorsalis Pedis (R): 2+ Pulses-Post. Tibialis (L): 2+ Pulses-Post. Tibialis (R): 2+ Pulses-Radial (L): 2+ Pulses-Radial (R): 2+ Extremity: Positive for: Normal ROM, Tenderness (right hand proximal-mid 5th digit with edema, ecchymosis; most tender at PIP. FROM, distal NV/motor intact. Right foot distal 4th and 5th metatarsals and digits tender to palpate, no edema/ecchymosis/deformity noted. FROM, distal NV/motor intact) Neurologic/Psych: Positive for: Alert, Oriented. Negative for: Motor/Sensory Deficits - ECG O2 Sat by Pulse Oximetry: 100 - Other Rad xray right hand X-Ray: Viewed By Me X-Ray Interpretation: no acute findings xray right foot X-Ray: Viewed By Me X-Ray Interpretation: no acute findings - Progress ED Course And Treament: naproxen PO xray right hand xray right foot Patient educated on findings, discharged with instructions to follow up PMD 2-3 days. Advised RICE, Tylenol PRN pain right hand 5th digit placed in finger splint right foot wrapped in DONATO, surgical shoe given Information for hand and pacs specialist given for persistent symptoms Return precautions given Disposition - Clinical Impression Clinical Impression: Finger sprain, Right foot sprain - Patient ED Disposition Is Patient to be Admitted: No Counseled Patient/Family Regarding: Studies Performed, Diagnosis, Need For Followup - Disposition Referrals: [facility] [Outside] Ed Connors MD [Staff Provider] - Disposition: Routine/Home Disposition Time: 02:45 Condition: IMPROVED Instructions: Finger Sprain (DC), Common Finger Injuries (DC) Forms: [facility] (Malagasy)
[2017-12-17 03:11] VITALS: BP 130/71; PULSE 88; TEMP 98.6; O2SAT 99
--- NOTE | 2017-12-17 10:09 | RAD ---
Date of service: 12/17/2017 PROCEDURE: Right Foot Radiographs. HISTORY: fall, pain 4th and 5th metatarsals and digits COMPARISON: None. FINDINGS: BONES: No acute fracture or destructive bony lesion identified. In particular, the appearance of the 4th and 5th metatarsal bones and digits appear nonfocal. JOINTS: Normal. SOFT TISSUES: Normal. OTHER FINDINGS: None. IMPRESSION: Unremarkable right foot radiographs including the right 4th and 5th digits and metatarsal bones.
--- NOTE | 2017-12-17 10:11 | RAD ---
PROCEDURE: Right Hand Radiographs. HISTORY: fall, pain 5th metacarpal and digit COMPARISON: Right hand radiographs 12/06/2015. FINDINGS: BONES: No acute fracture or destructive bony lesion identified, including 5th digit and metacarpal bone. JOINTS: Normal. No osteoarthritic changes. SOFT TISSUES: Normal. OTHER FINDINGS: None. IMPRESSION: Unremarkable, stable right hand radiographs.
== END 2017-12-17 03:10 | disposition home or self-care (01) ==
LOC: H.ER 01:47
DX: S63.619A Unspecified sprain of unspecified finger, initial encounter (principal); S93.601A Unspecified sprain of right foot, initial encounter; J45.909 Unspecified asthma, uncomplicated; F43.10 Post-traumatic stress disorder, unspecified; Z88.0 Allergy status to penicillin; W01.0XXA Fall on same level from slipping, tripping and stumbling without subsequent striking against object, initial encounter

== ENCOUNTER 2018-04-30 15:25 | Emergency (ER) | payer MEDICAID ==
[2018-04-30 15:26] VITALS: BMI 24.9
[2018-04-30 15:35] VITALS: RESP 20
--- NOTE | 2018-04-30 16:00 | ED PDOC ---
HPI: Female Pain Time Seen by Provider: 04/30/18 15:38 Chief Complaint (Nursing): Female Genitourinary History Per: Patient Onset/Duration Of Symptoms: Days (3) Current Symptoms Are (Timing): Intermittent Episodes Severity: Moderate Pain Scale Rating Of: 3 Quality Of Discomfort: Sharp Associated Symptoms: Urinary Symptoms. denies: Fever Additional Complaint(s): LLQ abd pain assoc with sexual relations with . Also with pain while having sex as well as bleeding. Has also had dysuria and hematuria. Denies f ever. Past Medical History Vital Signs: Last Vital Signs Temp 97.9 F 04/30/18 15:33 Pulse 105 H 04/30/18 15:33 Resp 20 04/30/18 15:33 BP 144/77 04/30/18 15:33 Pulse Ox 100 04/30/18 15:33 - Medical History PMH: Anxiety, Asthma, Back Problems (herniated disc, sciatica), Gastritis, GERD, Hiatal Hernia, Post Traumatic Stress Disorder, Seizures (reportedly a heart murmur) Denies: Diabetes, Deep Vein Thrombosis, Hepatitis, HIV, HTN, Pulmonary Embolism, Chronic Kidney Disease, Sexually Transmitted Disease - Surgical History Surgical History: Cholecystectomy - Family History Family History: States: Unknown Family Hx - Home Medications Home Medications: Ambulatory Orders Medication Instructions Recorded Acetaminophen with Codeine 1 tab PO Q8 PRN 08/24/17 [Tylenol with Codeine #3 Tablet] Albuterol 0.083% [Albuterol 0.083% 3 ml IH Q6 PRN 08/24/17 Inhal Beatriz (2.5 mg/3 ml) UD] Albuterol HFA [Ventolin HFA 90 1 - 2 puff IH Q4 PRN #1 inhaler 08/24/17 mcg/actuation (8 g)] Albuterol HFA [Ventolin HFA 90 2 puff IH Q4 PRN 08/24/17 mcg/actuation (8 g)] Cetirizine HCl 20 mg PO HS 08/24/17 Clindamycin [Cleocin] 300 mg PO Q8 08/24/17 Famotidine [Pepcid] 40 mg PO HS PRN 08/24/17 Gabapentin [Neurontin] 400 mg PO Q8 08/24/17 Lansoprazole [Prevacid] 30 mg PO DAILY 08/24/17 Ondansetron [Zofran Tab] 4 mg PO Q8 PRN 08/24/17 Prednisone 50 mg PO DAILY #4 tab 08/24/17 traZODone [Desyrel] 100 mg PO HS 08/24/17 Sulfamethoxazole/Trimethoprim 1 tab PO BID #20 tab 04/30/18 [Bactrim DS 800 mg-160 mg] traMADol [Ultram] 50 mg PO Q8 #10 tab 04/30/18 - Allergies Allergies/Adverse Reactions: Allergies Allergy/AdvReac Type Severity Reaction Status Date / Time ciprofloxacin [From Cipro] Allergy RASH Verified 04/30/18 15:33 ciprofloxacin HCl Allergy RASH Verified 04/30/18 15:33 [From Cipro] Penicillins Allergy RASH Verified 04/30/18 15:33 Review of Systems Constitutional: Negative for: Fever Gastrointestinal: Positive for: Abdominal Pain Genitourinary Female: Positive for: Dysuria, Hematuria, Vaginal Bleeding. Negative for: Vaginal Discharge Physical Exam - Physical Exam Appears: Positive for: Non-toxic, No Acute Distress Pelvic Exam: Positive for: External Exam Normal, Blood (Small amount of blood in vault). Negative for: Discharge, Lesions, Mass, Tender W/Cervical Motion, Tender Adnexa, Tender Uterus - ECG O2 Sat by Pulse Oximetry: 100 Disposition - Clinical Impression Clinical Impression: Urinary tract infection - Patient ED Disposition Is Patient to be Admitted: No Counseled Patient/Family Regarding: Studies Performed, Diagnosis, Need For Followup, Rx Given - Disposition [facility]errals: [facility] [Outside] Disposition: Routine/Home Disposition Time: 17:15 Condition: FAIR Prescriptions: Sulfamethoxazole/Trimethoprim [Bactrim DS 800 mg-160 mg] 1 tab PO BID #20 tab traMADol [Ultram] 50 mg PO Q8 #10 tab Instructions: Urinary Tract Infections in Adults Forms: [facility] (Kenyan)
[2018-04-30 16:49] LABS: SQUAMOUS EPITHIAL 8 /hpf (0-5); URINE BACTERIA RARE (<OCC); URINE BILIRUBIN NEGATIVE (NEGATIVE); URINE CLARITY SLIGHTY-CLOUDY (Clear); URINE COLOR YELLOW (YELLOW); URINE GLUCOSE (UA) NEG (NEGATIVE); URINE LEUKOCYTE ESTERASE NEG Leu/uL (Negative); URINE PROTEIN NEGATIVE (NEGATIVE); URINE UROBILINOGEN 0.2-1.0 mg/dL (0.2-1.0)
[2018-04-30 16:52] LABS: URINE BLOOD MODERATE (NEGATIVE)
--- NOTE | 2018-04-30 17:10 | US ---
Date of service: 04/30/2018 HISTORY: LLQ pain LMP 04/18/2018. COMPARISON: None available. TECHNIQUE: Transvaginal only. Real -time technique with 2D, duplex and color Doppler FINDINGS: UTERUS: Measures 4.5 x 5.6 x 7.3 cm. Normal in size and appearance. No fibroid or other mass lesion seen. ENDOMETRIUM: Measures 3.2 mm in diameter. No ultrasound findings to suggest gestational sac, fluid, debris, mass or polyp or other pathologic process within the endometrium. CERVIX: No cervical abnormality identified. RIGHT OVARY: Measures 1.7 x 3.4 x 2.4 cm. No solid mass. Normal flow. Multiple subcentimeter follicles. LEFT OVARY: Measures 2.1 x 2.2 x 3.1 cm. No solid mass. Normal flow. Dominant simple cyst 1.1 x 1.2 x 1.4 cm. FREE FLUID: Trace free fluid identified in the pelvis/cul de sac. OTHER FINDINGS: None. IMPRESSION: No acute findings related to/ accounting for the clinical presentation. Additional benign and/or incidental findings described above.
[2018-04-30 17:37] VITALS: BP 120/70; PULSE 70; TEMP 97.5; O2SAT 98
== END 2018-04-30 17:35 | disposition home or self-care (01) ==
LOC: H.ER 15:25
DX: N39.0 Urinary tract infection, site not specified (principal)

== ENCOUNTER 2018-08-10 07:08 | Emergency (ER) | payer MEDICAID ==
[2018-08-10 07:09] VITALS: BMI 24.9
[2018-08-10 07:27] VITALS: BP 125/75; PULSE 89; RESP 16; TEMP 98; O2SAT 98
[2018-08-10] MEDS ORDERED: Iohexol 240 (50 ml) PO ONE (08:35)
[2018-08-10] MEDS ORDERED: Sodium Chloride 0.9% 1,000 ML IV STA (08:35)
[2018-08-10 09:03] LABS: BASO # 0.1 K/uL (0.0-0.2); EOS # 0.3 K/uL (0.0-0.7); EOS % 3.8 % (0.0-4.0); HEMOGLOBIN 14.7 g/dL (12.0-16.0); LYMPH # 1.4 K/uL (1.0-4.3); LYMPH % 15.7 % (20.0-40.0); MEAN CELL VOLUME 93.3 fl (81.0-99.0); MEAN CORPUSCULAR HEMOGLOBIN 31.4 pg (27.0-31.0); MEAN CORPUSCULAR HGB CONC 33.7 g/dL (33.0-37.0); MONO # 0.7 K/uL (0.0-0.8); MONO % 7.8 % (0.0-10.0); NEUT # 6.6 K/uL (1.8-7.0); NEUT % 71.7 % (50.0-75.0); NRBC % 0.1 % (0.0-0.0); RBC 4.67 Mil/uL (3.80-5.20); RED CELL DISTRIBUTION WIDTH 13.3 % (11.5-14.5); WHITE BLOOD COUNT 9.1 K/uL (4.8-10.8)
[2018-08-10 09:11] LABS: ALB/GLOB RATIO 1.4 (1.0-2.1); ALBUMIN 4.6 g/dL (3.5-5.0); ALT/SGPT 34 U/L (9-52); AST/SGOT 26 U/L (14-36); BLOOD UREA NITROGEN 7 mg/dl (7-17); CALCIUM 9.9 mg/dL (8.4-10.2); GFR NON-AFRICAN AMERICAN > 60; LIPASE 21 U/L (23-300)
--- NOTE | 2018-08-10 10:10 | ED PDOC ---
HPI: Abdomen Time Seen by Provider: 08/10/18 08:15 Chief Complaint (Nursing): Abdominal Pain Chief Complaint (Provider): Abdominal Pain History Per: Patient History/Exam Limitations: no limitations Onset/Duration Of Symptoms: Hrs (5am today) Current Symptoms Are (Timing): Still Present Location Of Pain/Discomfort: Epigastric Quality Of Discomfort: "Pain" Associated Symptoms: denies: Fever, Vomiting, Diarrhea, Urinary Symptoms Additional Complaint(s): 42 year old female with a history of PTSD, gallbladder, GERD, hiatal hernia presents to the ED complaining of epigastric pain onset at 5am associated with nausea. Currently, the patient denies nausea, fever, diarrhea, dysuria or vomiting. PMD: [place] Abnormal Vaginal Bleeding: No Past Medical History Reviewed: Historical Data, Nursing Documentation, Vital Signs Vital Signs: Last Vital Signs Temp 98.0 F 08/10/18 07:22 Pulse 89 08/10/18 07:22 Resp 16 08/10/18 07:22 BP 125/75 08/10/18 07:22 Pulse Ox 98 08/10/18 07:22 - Medical History PMH: Anxiety, Asthma, Back Problems (herniated disc, sciatica), Gastritis, GERD, Hiatal Hernia, Post Traumatic Stress Disorder, Seizures (reportedly a heart murmur) Denies: Diabetes, Deep Vein Thrombosis, Hepatitis, HIV, HTN, Pulmonary Embolism, Chronic Kidney Disease, Sexually Transmitted Disease - Surgical History Surgical History: Cholecystectomy - Family History Family History: States: Unknown Family Hx - Social History Current smoker - smoking cessation education provided: Yes Alcohol: None (one pack of cigarette a day) Drugs: Cannabis - Immunization History Hx Tetanus Toxoid Vaccination: No Hx Influenza Vaccination: No Hx Pneumococcal Vaccination: No - Home Medications Home Medications: Ambulatory Orders Medication Instructions Recorded Acetaminophen with Codeine 1 tab PO Q8 PRN 08/24/17 [Tylenol with Codeine #3 Tablet] Albuterol 0.083% [Albuterol 0.083% 3 ml IH Q6 PRN 08/24/17 Inhal Beatriz (2.5 mg/3 ml) UD] Albuterol HFA [Ventolin HFA 90 1 - 2 puff IH Q4 PRN #1 inhaler 08/24/17 mcg/actuation (8 g)] Albuterol HFA [Ventolin HFA 90 2 puff IH Q4 PRN 08/24/17 mcg/actuation (8 g)] Cetirizine HCl 20 mg PO HS 08/24/17 Clindamycin [Cleocin] 300 mg PO Q8 08/24/17 Famotidine [Pepcid] 40 mg PO HS PRN 08/24/17 Gabapentin [Neurontin] 400 mg PO Q8 08/24/17 Lansoprazole [Prevacid] 30 mg PO DAILY 08/24/17 Ondansetron [Zofran Tab] 4 mg PO Q8 PRN 08/24/17 Prednisone 50 mg PO DAILY #4 tab 08/24/17 traZODone [Desyrel] 100 mg PO HS 08/24/17 Sulfamethoxazole/Trimethoprim 1 tab PO BID #20 tab 04/30/18 [Bactrim DS 800 mg-160 mg] traMADol [Ultram] 50 mg PO Q8 #10 tab 04/30/18 - Allergies Allergies/Adverse Reactions: Allergies Allergy/AdvReac Type Severity Reaction Status Date / Time ciprofloxacin [From Cipro] Allergy RASH Verified 04/30/18 15:33 ciprofloxacin HCl Allergy RASH Verified 04/30/18 15:33 [From Cipro] Penicillins Allergy RASH Verified 04/30/18 15:33 Review of Systems ROS Statement: Except As Marked, All Systems Reviewed And Found Negative Constitutional: Negative for: Fever Gastrointestinal: Positive for: Abdominal Pain. Negative for: Nausea, Vomiting, Diarrhea Genitourinary Female: Negative for: Dysuria Physical Exam - Reviewed Nursing Documentation Reviewed: Yes Vital Signs Reviewed: Yes - Physical Exam Appears: Positive for: Well, Non-toxic, No Acute Distress Head Exam: Positive for: ATRAUMATIC, NORMAL INSPECTION, NORMOCEPHALIC Skin: Positive for: Normal Color, Warm, DRY Eye Exam: Positive for: EOMI, Normal appearance, PERRL ENT: Positive for: Normal ENT Inspection Neck: Positive for: Normal, Painless ROM Cardiovascular/Chest: Positive for: Regular Rate, Rhythm. Negative for: Murmur Respiratory: Positive for: Normal Breath Sounds. Negative for: Decreased Breath Sounds, Respiratory Distress Gastrointestinal/Abdominal: Positive for: Soft, Tenderness (mild epigastric ) Back: Positive for: Normal Inspection. Negative for: L CVA Tenderness, R CVA Tenderness Extremity: Positive for: Normal ROM. Negative for: Tenderness, Pedal Edema, Deformity Neurological/Psych: Positive for: Awake, Alert, Normal Tone, Oriented (x3) - Laboratory Results Result Diagrams: 08/10/18 08:40 08/10/18 08:40 Lab Results: Total Bilirubin 0.5 mg/dl (0.2-1.3) 08/10/18 08:40 AST 26 U/L (14-36) 08/10/18 08:40 ALT 34 U/L (9-52) 08/10/18 08:40 Alkaline Phosphatase 89 U/L (38-126) 08/10/18 08:40 Total Protein 8.0 G/DL (6.3-8.2) 08/10/18 08:40 Albumin 4.6 g/dL (3.5-5.0) 08/10/18 08:40 Globulin 3.4 gm/dL (2.2-3.9) 08/10/18 08:40 Albumin/Globulin Ratio 1.4 (1.0-2.1) 08/10/18 08:40 Lipase 21 U/L (23-300) L 08/10/18 08:40 - ECG O2 Sat by Pulse Oximetry: 98 (RA) Pulse Ox Interpretation: Normal Medical Decision Making Medical Decision Making: Time: 834 Plan: Abdomen pelvis PO & IV contrast CT CMP Lipase CBC w/ differential Morphine 2mg Normal Saline 999 mls/hr Omnipaque 50ml Reevaluation 908 Patient signed out against medical advice from the ED. Scribe Attestation: Documented by Michelle Nova, acting as a scribe forIsis Roland MD. Provider Scribe Attestation: All medical record entries made by the Scribe were at my direction and personally dictated by me. I have reviewed the chart and agree that the record accurately reflects my personal performance of the history, physical exam, medical decision making, and the department course for this patient. I have also personally directed, reviewed, and agree with the discharge instructions and disposition. Disposition - Clinical Impression Clinical Impression: Abdominal discomfort, Left against medical advice - Patient ED Disposition Is Patient to be Admitted: No - Disposition Referrals: Harry William MD [Primary Care Provider] - Disposition: Against Medical Advice Disposition Time: 09:09 Condition: STABLE Additional Instructions: follow up with your doctor as soon as possible return to the ED immediately with any worsening or concerning symptoms Instructions: Acute Abdomen (Belly Pain), Adult (DC), Leaving Against Medical Advice Forms: [employer] (Kinyarwanda)
== END 2018-08-10 09:10 | disposition left against medical advice (07) ==
LOC: H.ER 07:08 → SUPCPDRO 07:08 → H.ER 09:10
DX: R10.13 Epigastric pain (principal); F17.210 Nicotine dependence, cigarettes, uncomplicated; F43.10 Post-traumatic stress disorder, unspecified; J45.909 Unspecified asthma, uncomplicated; Z88.0 Allergy status to penicillin; Z88.1 Allergy status to other antibiotic agents
CPT/HCPCS: 80053; 81025; 83690; 85025; 96374; 99283; J2270

== ENCOUNTER 2018-08-12 13:26 | Emergency (ER) | payer MEDICAID ==
[2018-08-12 13:27] VITALS: BMI 24.9
[2018-08-12 13:30] VITALS: O2SAT 100
[2018-08-12] MEDS ORDERED: Sodium Chloride 0.9% 1,000 ML IV SCH (14:00)
--- NOTE | 2018-08-12 14:03 | ED PDOC ---
HPI: Abdomen Time Seen by Provider: 08/12/18 13:31 Chief Complaint (Nursing): Abdominal Pain Additional History Per: Patient Additional Complaint(s): 42 y/o F with PMH od PTSD, cholecystectomy, GERD/Gastritis and asthma presented to ER c/o 3 days hx of worsening left flank/abdominal pain. Pain is radiating from flank to back and LLQ, 10/10 severity, getting constant, stabbing in nature, gets worse with movement and breathing, associated with dysuria and nausea. + vomiting NBNB 2 days ago, denies any fever, diarrhea, weakness, chest pain, dizziness or SOB. PMH/PSH: PTSD, cholecystectomy, GERD/Gastritis and asthma Allg: PCN class and cipro SH: + 1 pack/day smoking, denies any alcohol or drug use FH: Denies ani GI cancers ROS: As per HPI Past Medical History Vital Signs: Last Vital Signs Temp 97.4 F L 08/12/18 13:28 Pulse 104 H 08/12/18 13:28 Resp 18 08/12/18 13:28 BP 120/71 08/12/18 13:28 Pulse Ox 100 08/12/18 13:28 - Medical History PMH: Anxiety, Asthma, Back Problems (herniated disc, sciatica), Gastritis, GERD, Hiatal Hernia, Post Traumatic Stress Disorder, Seizures (reportedly a heart murmur) Denies: Diabetes, Deep Vein Thrombosis, Hepatitis, HIV, HTN, Pulmonary Embolism, Chronic Kidney Disease, Sexually Transmitted Disease - Surgical History Surgical History: Cholecystectomy - Family History Family History: States: Unknown Family Hx - Immunization History Hx Tetanus Toxoid Vaccination: No Hx Influenza Vaccination: No Hx Pneumococcal Vaccination: No - Home Medications Home Medications: Ambulatory Orders Medication Instructions Recorded Acetaminophen with Codeine 1 tab PO Q8 PRN 08/24/17 [Tylenol with Codeine #3 Tablet] Albuterol 0.083% [Albuterol 0.083% 3 ml IH Q6 PRN 08/24/17 Inhal Beatriz (2.5 mg/3 ml) UD] Albuterol HFA [Ventolin HFA 90 1 - 2 puff IH Q4 PRN #1 inhaler 08/24/17 mcg/actuation (8 g)] Albuterol HFA [Ventolin HFA 90 2 puff IH Q4 PRN 08/24/17 mcg/actuation (8 g)] Cetirizine HCl 20 mg PO HS 08/24/17 Clindamycin [Cleocin] 300 mg PO Q8 08/24/17 Famotidine [Pepcid] 40 mg PO HS PRN 08/24/17 Gabapentin [Neurontin] 400 mg PO Q8 08/24/17 Lansoprazole [Prevacid] 30 mg PO DAILY 08/24/17 Ondansetron [Zofran Tab] 4 mg PO Q8 PRN 08/24/17 Prednisone 50 mg PO DAILY #4 tab 08/24/17 traZODone [Desyrel] 100 mg PO HS 08/24/17 Sulfamethoxazole/Trimethoprim 1 tab PO BID #20 tab 04/30/18 [Bactrim DS 800 mg-160 mg] traMADol [Ultram] 50 mg PO Q8 #10 tab 04/30/18 Naproxen [Naprosyn] 500 mg PO BID PRN 15 Days #30 08/12/18 tablet - Allergies Allergies/Adverse Reactions: Allergies Allergy/AdvReac Type Severity Reaction Status Date / Time ciprofloxacin [From Cipro] Allergy RASH Verified 08/12/18 13:28 ciprofloxacin HCl Allergy RASH Verified 08/12/18 13:28 [From Cipro] Penicillins Allergy RASH Verified 08/12/18 13:28 Review of Systems Constitutional: Negative for: Fever, Chills, Sweats, Weakness Eyes: Negative for: Pain ENT: Negative for: Ear Pain Cardiovascular: Negative for: Chest Pain, Palpitations, Orthopnea, Paroxysmal Noc. Dyspnea Respiratory: Negative for: Cough Gastrointestinal: Positive for: Nausea, Abdominal Pain. Negative for: Vomiting Genitourinary Female: Positive for: Dysuria. Negative for: Frequency, Incontinence Musculoskeletal: Negative for: Neck Pain, Shoulder Pain Skin: Negative for: Rash Neurological: Negative for: Weakness Psych: Positive for: Anxiety Physical Exam - Physical Exam Appears: Positive for: No Acute Distress Head Exam: Positive for: ATRAUMATIC, NORMAL INSPECTION, NORMOCEPHALIC Skin: Positive for: Normal Color Eye Exam: Positive for: Normal appearance ENT: Positive for: Normal ENT Inspection Neck: Positive for: Normal Cardiovascular/Chest: Positive for: Regular Rate, Rhythm. Negative for: Murmur Respiratory: Positive for: Normal Breath Sounds. Negative for: Decreased Breath Sounds, Accessory Muscle Use, Crackles, Stridor, Wheezing Gastrointestinal/Abdominal: Positive for: Soft, Tenderness (LUQ ). Negative for: Distended, Guarding, Rebound Back: Positive for: L CVA Tenderness. Negative for: R CVA Tenderness Extremity: Positive for: Normal ROM. Negative for: Tenderness Neurological/Psych: Positive for: Awake, Alert, Normal Tone, Oriented, loop tender II- XII - Laboratory Results Result Diagrams: 08/12/18 14:20 08/12/18 14:20 - ECG O2 Sat by Pulse Oximetry: 100 - Progress ED Course And Treament: A/P: 42 y/o F with Left abdominal/flank pain and dysuria. - CBC - CMP - Lipase - UA - Ucx - Bcx - Urine - CT abdo/Pelvis w/o CONT - Toradol - IVF - Reevaluation Case discussed with Dr. Winn Labs reviewed: No significant abnormalities CT: Epiploic appendagitis/Colitis Re-evaluation Time: 17:42 Condition: Improved Medical Decision Making Medical Decision Making: Epiploic appendagitis/Colitis Disposition - Clinical Impression Clinical Impression: Epiploic appendagitis, Colitis - Patient ED Disposition Is Patient to be Admitted: No - Disposition Referrals: Harry William MD [Family Provider] - Philip Casper MD [Staff Provider] - Disposition: Routine/Home Disposition Time: 17:46 Condition: STABLE Additional Instructions: Follow up with PMD and GI in 2-3 days as instructed Return to the ER if symptoms get worse Prescriptions: Naproxen [Naprosyn] 500 mg PO BID PRN 15 Days #30 tablet PRN Reason: Pain, Moderate (4-7) Instructions: Colitis, Colitis (DC) Forms: [employer] (Nicaraguan) Print Language: GERMAN
[2018-08-12 14:42] LABS: BASO # 0.1 K/uL (0.0-0.2); BASO % 0.6 % (0.0-2.0); EOS # 0.2 K/uL (0.0-0.7); HEMOGLOBIN 13.2 g/dL (12.0-16.0); LYMPH # 1.8 K/uL (1.0-4.3); LYMPH % 19.1 % (20.0-40.0); MEAN CELL VOLUME 93.8 fl (81.0-99.0); MEAN CORPUSCULAR HEMOGLOBIN 31.8 pg (27.0-31.0); MEAN CORPUSCULAR HGB CONC 33.9 g/dL (33.0-37.0); MEAN PLATELET VOLUME 8.2 fl (7.2-11.7); MONO # 0.7 K/uL (0.0-0.8); MONO % 7.9 % (0.0-10.0); NEUT # 6.4 K/uL (1.8-7.0); NEUT % 70.4 % (50.0-75.0); RBC 4.15 Mil/uL (3.80-5.20); RED CELL DISTRIBUTION WIDTH 13.3 % (11.5-14.5); WHITE BLOOD COUNT 9.1 K/uL (4.8-10.8)
[2018-08-12 14:43] LABS: SQUAMOUS EPITHIAL 1 /hpf (0-5); URINE BACTERIA RARE (<OCC); URINE BILIRUBIN NEGATIVE (NEGATIVE); URINE BLOOD SMALL (NEGATIVE); URINE CLARITY CLEAR (Clear); URINE COLOR YELLOW (YELLOW); URINE GLUCOSE (UA) NEG (NEGATIVE); URINE LEUKOCYTE ESTERASE NEG Leu/uL (Negative); URINE PROTEIN NEGATIVE (NEGATIVE); URINE UROBILINOGEN 0.2-1.0 mg/dL (0.2-1.0)
[2018-08-12 15:26] LABS: ALB/GLOB RATIO 1.2 (1.0-2.1); AST/SGOT 41 U/L (14-36); BLOOD UREA NITROGEN 7 mg/dl (7-17); CALCIUM 9.3 mg/dL (8.4-10.2); GFR NON-AFRICAN AMERICAN > 60
[2018-08-12 15:27] LABS: ALT/SGPT 18 U/L (9-52); LIPASE 11 U/L (23-300)
--- NOTE | 2018-08-12 17:27 | CT ---
Date of service: 08/12/2018 PROCEDURE: CT Abdomen and Pelvis without intravenous contrast HISTORY: Left flank and abdominal pain. Negative test (concurrent with this examination). COMPARISON: 02/20/2017. CT abdomen and pelvis. 04/30/2018 pelvic ultrasound TECHNIQUE: Unenhanced. Neither IV nor oral contrast administered Radiation dose: Total exam DLP = inf_radiation_dlp mGy-cm. This CT exam was performed using one or more of the following dose reduction techniques: Automated exposure control, adjustment of the mA and/or kV according to patient size, and/or use of iterative reconstruction technique. FINDINGS: LOWER THORAX: Unremarkable. LIVER: Unremarkable. No gross lesion or ductal dilatation. Incidental finding(s): Air identified with respect to non dependent nondilated biliary radicles likely the sequela of biliary enteric intervention. Similar findings seen on the prior study are without change. GALLBLADDER AND BILE DUCTS: Status post cholecystectomy. No abnormality is seen in the gallbladder fossa. PANCREAS: Unremarkable. No gross lesion or ductal dilatation. SPLEEN: Unremarkable. ADRENALS: Unremarkable. No mass. KIDNEYS AND URETERS: Unremarkable. No hydronephrosis. No solid mass. VASCULATURE: Unremarkable. No aortic aneurysm. No atherosclerotic calcification or mural plaque present. BOWEL: Inflammatory changes limited to the descending colon. Differential considerations include colitis, epiploic appendagitis. The patient denies diarrhea, there is no history of colitis or diverticulitis. There is a solitary focus outside the wall of the descending colon with increased attenuation which may represent blood within pericolonic fat APPENDIX: Unremarkable. Normal appendix. PERITONEUM: Unremarkable. No free fluid. No free air. LYMPH NODES: Unremarkable. No enlarged lymph nodes. BLADDER: Unremarkable. REPRODUCTIVE: Unremarkable. BONES: No acute fracture. OTHER FINDINGS: None. IMPRESSION: Findings consistent with epiploic appendagitis descending colon. This is based on overall appearance and clinical history kindly provided by the physician sales assistant entertainment and media at the time of this interpretation. Communication of results: I discussed the findings with the physician sales assistant entertainment and media at the time of this interpretation (17:19).
[2018-08-12 18:33] VITALS: BP 118/70; PULSE 78; RESP 17; TEMP 97.8
== END 2018-08-12 18:10 | disposition home or self-care (01) ==
LOC: H.ER 13:26
DX: K52.9 Noninfective gastroenteritis and colitis, unspecified (principal); K65.9 Peritonitis, unspecified; K21.9 Gastro-esophageal reflux disease without esophagitis; F43.10 Post-traumatic stress disorder, unspecified; Z88.0 Allergy status to penicillin; Z88.1 Allergy status to other antibiotic agents
CPT/HCPCS: 74176; 80053; 81003; 81025; 83690; 85025; 87040; 87086; 96374; 99283; J1885; J7030

== ENCOUNTER 2018-10-10 19:44 | Emergency (ER) | payer MEDICAID ==
[2018-10-10 19:48] VITALS: BMI 27.8
[2018-10-10 20:38] LABS: BASO # 0.1 K/uL (0.0-0.2); BASO % 1.3 % (0.0-2.0); EOS # 0.2 K/uL (0.0-0.7); EOS % 2.1 % (0.0-4.0); HEMOGLOBIN 13.4 g/dL (12.0-16.0); LYMPH # 2.2 K/uL (1.0-4.3); LYMPH % 26.4 % (20.0-40.0); MEAN CELL VOLUME 93.1 fl (81.0-99.0); MEAN CORPUSCULAR HEMOGLOBIN 32.5 pg (27.0-31.0); MEAN PLATELET VOLUME 7.6 fl (7.2-11.7); MONO # 0.8 K/uL (0.0-0.8); MONO % 9.1 % (0.0-10.0); NEUT # 5.1 K/uL (1.8-7.0); NEUT % 61.1 % (50.0-75.0); RBC 4.13 Mil/uL (3.80-5.20); RED CELL DISTRIBUTION WIDTH 13.3 % (11.5-14.5); WHITE BLOOD COUNT 8.3 K/uL (4.8-10.8)
[2018-10-10 20:47] LABS: ALB/GLOB RATIO 1.4 (1.0-2.1); ALBUMIN 4.1 g/dL (3.5-5.0); ALT/SGPT 28 U/L (9-52); AST/SGOT 26 U/L (14-36); BLOOD UREA NITROGEN 11 mg/dl (7-17); CALCIUM 8.7 mg/dL (8.4-10.2); GFR NON-AFRICAN AMERICAN > 60
--- NOTE | 2018-10-10 21:23 | ED PDOC ---
HPI: General Adult Time Seen by Provider: 10/10/18 20:00 Chief Complaint (Nursing): Weakness/Neurological Deficit Chief Complaint (Provider): Left Sided Facial Pain, Left Arm Numbness, Headache History Per: Patient History/Exam Limitations: no limitations Onset/Duration Of Symptoms: Days (x1 week) Current Symptoms Are (Timing): Still Present Additional Complaint(s): 42 year old female with extensive pmhx presents to the ED for evaluation of left sided facial pain and numbness for the past week associated with feelings of forgetfulness and intermittent left arm numbness. She also reports a mild headache, but denies it being thunderclap or the worst of her life. Of note, pt has history of TMJ, but states these symptoms do not feel similar to those in the past. NIHSS Stroke Scale - Date/Time Evaluation Performed Date Performed: 10/10/18 Time Performed: 20:00 When Was NIHSS Performed: Baseline - How Severe is the Stroke Level of Consciousness: 0=Alert LOC to Questions: 0=Both comments correct LOC to commands: 0=Obeys both correctly Best Gaze: 0=Normal Visual: 0=No visual loss Facial: 0=Normal Motor Arm - Left: 0=No drift Motor Arm - Right: 0=No drift Motor Leg - Left: 0=No drift Motor Leg - Right: 0=No drift Limb Ataxia: 0=Absent Sensory: 0=Normal Best Language: 0=No aphasia Dysarthia: 0=Normal articulation Extinction & Inattention (Neglect): 0=Normal, no object Score: 0 Past Medical History Reviewed: Historical Data, Nursing Documentation, Vital Signs Vital Signs: Last Vital Signs Temp 98.5 F 10/10/18 19:48 Pulse 108 H 10/10/18 19:48 Resp 18 10/10/18 19:48 BP 134/91 H 10/10/18 19:48 Pulse Ox 99 10/10/18 19:48 Primary Care Provider: Harry William - Medical History PMH: Anxiety (ptsd), Asthma, Back Problems (herniated disc, sciatica), Gastritis, GERD, Hiatal Hernia, Kidney Stones, Post Traumatic Stress Disorder, Seizures (reportedly a heart murmur) Denies: Diabetes, Deep Vein Thrombosis, Hepatitis, HIV, HTN, Pulmonary Em bolism, Chronic Kidney Disease, Sexually Transmitted Disease Other PMH: TMJ - Surgical History Surgical History: Cholecystectomy Other surgeries: breast reduction - Family History Family History: States: Unknown Family Hx - Social History Current smoker - smoking cessation education provided: Yes Alcohol: None Drugs: Cannabis - Immunization History Hx Tetanus Toxoid Vaccination: No Hx Influenza Vaccination: No Hx Pneumococcal Vaccination: No - Home Medications Home Medications: Ambulatory Orders Medication Instructions Recorded Acetaminophen with Codeine 1 tab PO Q8 PRN 08/24/17 [Tylenol with Codeine #3 Tablet] Albuterol 0.083% [Albuterol 0.083% 3 ml IH Q6 PRN 08/24/17 Inhal Beatriz (2.5 mg/3 ml) UD] Albuterol HFA [Ventolin HFA 90 1 - 2 puff IH Q4 PRN #1 inhaler 08/24/17 mcg/actuation (8 g)] Albuterol HFA [Ventolin HFA 90 2 puff IH Q4 PRN 08/24/17 mcg/actuation (8 g)] Cetirizine HCl 20 mg PO HS 08/24/17 Clindamycin [Cleocin] 300 mg PO Q8 08/24/17 Famotidine [Pepcid] 40 mg PO HS PRN 08/24/17 Gabapentin [Neurontin] 400 mg PO Q8 08/24/17 Lansoprazole [Prevacid] 30 mg PO DAILY 08/24/17 Ondansetron [Zofran Tab] 4 mg PO Q8 PRN 08/24/17 Prednisone 50 mg PO DAILY #4 tab 08/24/17 traZODone [Desyrel] 100 mg PO HS 08/24/17 Sulfamethoxazole/Trimethoprim 1 tab PO BID #20 tab 04/30/18 [Bactrim DS 800 mg-160 mg] traMADol [Ultram] 50 mg PO Q8 #10 tab 04/30/18 Naproxen [Naprosyn] 500 mg PO BID PRN 15 Days #30 08/12/18 tablet - Allergies Allergies/Adverse Reactions: Allergies Allergy/AdvReac Type Severity Reaction Status Date / Time ciprofloxacin [From Cipro] Allergy RASH Verified 10/10/18 19:48 ciprofloxacin HCl Allergy RASH Verified 10/10/18 19:48 [From Cipro] Penicillins Allergy RASH Verified 10/10/18 19:48 Review of Systems ROS Statement: Except As Marked, All Systems Reviewed And Found Negative Neurological: Positive for: Numbness (left arm and face), Headache (mild, not thunderclap or worst of her life), Other (feeling forgetful) Physical Exam - Reviewed Nursing Documentation Reviewed: Yes Vital Signs Reviewed: Yes - Physical Exam Appears: Positive for: No Acute Distress Head Exam: Positive for: ATRAUMATIC, NORMAL INSPECTION, NORMOCEPHALIC Skin: Positive for: Normal Color, Warm, DRY Eye Exam: Positive for: EOMI, Normal appearance, PERRL ENT: Positive for: Normal ENT Inspection Neck: Positive for: Normal, Painless ROM, Supple Cardiovascular/Chest: Positive for: Regular Rate, Rhythm Respiratory: Positive for: Normal Breath Sounds. Negative for: Respiratory Distress Gastrointestinal/Abdominal: Positive for: Normal Exam, Soft. 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 Negative for: Facial Droop - Laboratory Results Result Diagrams: 10/10/18 20:32 10/10/18 20:32 Lab Results: Troponin I < 0.0120 ng/mL (0.00-0.120) 10/10/18 20:32 Total Bilirubin 0.3 mg/dl (0.2-1.3) 10/10/18 20:32 AST 26 U/L (14-36) 10/10/18 20:32 ALT 28 U/L (9-52) 10/10/18 20:32 Alkaline Phosphatase 79 U/L (38-126) 10/10/18 20:32 Total Protein 7.0 G/DL (6.3-8.2) 10/10/18 20:32 Albumin 4.1 g/dL (3.5-5.0) 10/10/18 20:32 Globulin 2.9 gm/dL (2.2-3.9) 10/10/18 20:32 Albumin/Globulin Ratio 1.4 (1.0-2.1) 10/10/18 20:32 - ECG ECG: Positive for: Interpreted By Me, Viewed By Me ECG Rhythm: Positive for: Normal ST Segment, Sinus Rhythm (normal at 74bpm). Negative for: ST/T Changes O2 Sat by Pulse Oximetry: 99 (RA) Pulse Ox Interpretation: Normal Medical Decision Making Medical Decision Making: Time: 2017 Initial Impression: parasthesias r/o intracranial etiology - however pt with normal neuro exam. rule out infection, electrolyte abnormality Initial Plan: --CT head without contrast --EKG --CMP --Trop I --CBC with differential CT head FINDINGS: BRAIN: No acute intraparenchymal hemorrhage. No mass lesion. No CT evidence for acute territorial infarct. No midline shift or extra-axial collections. VENTRICLES: No hydrocephalus. ORBITS: The orbits are unremarkable. SINUSES AND MASTOIDS: Bilateral ethmoid sinusitis. The paranasal sinuses and mastoid air cells are clear. BONES: No fracture. SOFT TISSUES: Unremarkable. IMPRESSION: No acute intracranial abnormality. reviewed labs, benign on reeval, 2100 pt feels improved and neuro exam is normal, is stable for discharge home iwth outpt neruology follow up. pt is agreeable to plan. Scribe Attestation: Documented by Isabela Myers, acting as a scribe for Isis Roland MD. Provider Scribe Attestation: All medical record entries made by the Scribe were at my direction and personally dictated by me. I have reviewed the chart and agree that the record accurately reflects my personal performance of the history, physical exam, medical decision making, and the department course for this patient. I have also personally directed, reviewed, and agree with the discharge instructions and disposition. Disposition - Clinical Impression Clinical Impression: Facial paresthesia - Patient ED Disposition Is Patient to be Admitted: No Counseled Patient/Family Regarding: Studies Performed, Diagnosis, Need For Followup - Disposition Referrals: April Li MD [Medical Doctor] - Disposition: Routine/Home Disposition Time: 22:00 Condition: IMPROVED Additional Instructions: follow up with your primary doctor in 1-2 days as well as neurologist this week take motrin for pain as needed return to the ED with any worsening or concerning symptoms Instructions: Paresthesias (DC) Forms: [employer] (Georgian)
[2018-10-10 22:46] VITALS: BP 125/83; PULSE 83; RESP 16; TEMP 98
--- NOTE | 2018-10-11 07:57 | CT ---
Date of service: 10/10/2018 PROCEDURE: CT HEAD WITHOUT CONTRAST. HISTORY: left sdied facial pain COMPARISON: 08/24/2017, 09/06/2017. Serial CT scans of the head. TECHNIQUE: Axial computed tomography images were obtained through the head/brain without intravenous contrast. Supplemental Coronal and Sagittal projections created and reviewed. Radiation dose: Total exam DLP = <inf_radiation_dlp> mGy-cm. This CT exam was performed using one or more of the following dose reduction techniques: Automated exposure control, adjustment of the mA and/or kV according to patient size, and/or use of iterative reconstruction technique. FINDINGS: HEMORRHAGE: No intracranial hemorrhage. BRAIN: No mass effect or edema. No atrophy or chronic microvascular ischemic changes. VENTRICLES: Unremarkable. No hydrocephalus. CALVARIUM: Unremarkable. PARANASAL SINUSES: Unremarkable as visualized. No significant inflammatory changes. MASTOID AIR CELLS: Unremarkable as visualized. No inflammatory changes. OTHER FINDINGS: None. IMPRESSION: No acute intracranial abnormalities. No significant findings to account for the clinical presentation. No significant interval change compared to the prior examination(s). Concordant results (preliminary interpretation) provided by JENNIFER LANIER. Procedure Completed: 20:26. Preliminary Report: Interpreted and electronically signed: 20:46. Final Interpretation: 07:54. October 11, 2018.
--- NOTE | 2018-10-11 11:54 | CARD ---
APPROVED REPORT Date of service: 10/10/2018 EKG Measurement Heart [id number] <Conclusion> Normal sinus rhythm Normal ECG
[2018-10-12 03:08] VITALS: O2SAT 99
== END 2018-10-10 22:42 | disposition home or self-care (01) ==
LOC: H.ER 19:44
DX: R20.2 Paresthesia of skin (principal); F17.200 Nicotine dependence, unspecified, uncomplicated; J45.909 Unspecified asthma, uncomplicated; F43.10 Post-traumatic stress disorder, unspecified; Z87.442 Personal history of urinary calculi; Z88.0 Allergy status to penicillin; Z88.1 Allergy status to other antibiotic agents